=== PATIENT | male | born 1975 | race Caucasian/White ===

== ENCOUNTER 2024-12-23 13:58 | Emergency (ER) | payer BC, SELFPAY ==
--- NOTE | ~2024-12-23 | XR_ITS ---
EXAMINATION: XR chest 2V DATE: 12/23/2024 14:33 INDICATION: Syncope with unresponsive episodes TECHNIQUE: frontal and lateral views of the chest were obtained. COMPARISON: None FINDINGS: The lungs are clear with no focal airspace opacities, pulmonary edema, pleural effusion or pneumothor ax. The cardiomediastinal silhouette is normal. Visualized bones and soft tissues are unremarkable. IMPRESSION: 1. No acute cardiopulmonary disease. Reviewed, dictated and finalized at location B. [employer]
[2024-12-23 14:00] VITALS: BP 169/94; PULSE 72; RESP 22; O2SAT 100
--- NOTE | 2024-12-23 14:05 | ECG_ITS ---
Test Date: 2024-12-23 14:09:34 Measurements Intervals [place] Rate: 68 P: 0 KS: 138 QRS: 7 QRSD: 89 T: 11 QT: 367 QTc: 391 Interpretive Statements SINUS RHYTHM BASELINE ARTIFACT- I, ,II, III, AVR, AVL, AVF, V1-V6 NORMAL ECG No previous ECG available for comparison Electronically Signed On 12-23-2024 14:14:42 [employer]ORSE DOCTOR by Abhijeet Kern D.O.
[2024-12-23 14:12] VITALS: BP 169/94; PULSE 81; RESP 19; TEMP 37.2; O2SAT 96
[2024-12-23 14:14] LABS: Glucose Point of Care 96 mg/dl (65-105)
[2024-12-23 14:28] LABS: Basophils Percent Auto 0.4 % (0.2-1.2); Eosinophils Absolute Auto 0.1 K/mm3 (0-0.3); Eosinophils Percent Auto 1.2 % (0-4.4); Hematocrit 42.7 % (42.0-52.0); Hemoglobin 14.8 g/dL (14.0-18.0); Immature Granulocyte Absolute 0.01 K/mm3 (0.00-0.031); Immature Granulocyte Percent A 0.2 % (0-0.5); Lymphocytes Absolute Auto 1.06 K/mm3 (0.9-3.2); Mean Corpuscular HGB Conc 34.7 g/dl (32-36); Mean Corpuscular Hemoglobin 28.4 pg (26-34); Mean Corpuscular Volume 81.8 fl (80-100); Mean Platelet Volume 10.2 fl (7.4-10.4); Monocytes Absolute Auto 0.6 K/mm3 (0.1-0.6); Monocytes Percent Auto 12.7 % (2.6-8.5); Neutrophils Absolute Auto 3.3 K/mm3 (1.3-6.7); Neutrophils Percent Auto 64.5 % (45.5-73.1); Platelet Count Result 176 k/mm3 (150-375); Red Blood Count 5.22 M/mm3 (4.6-6.20); Red Cell Distribution Width 13.9 % (11.5-14.5)
[2024-12-23 14:38] LABS: Alanine Aminotransferase 29 U/L (6-50); Albumin Level 4.3 g/dL (3.5-5.1); Alkaline Phosphatase 86 U/L (38-126); Anion Gap 14 mmol/L (4-12); Aspartate Amino Transferase 23 U/L (17-59); Bilirubin,Total 0.9 mg/dL (0.2-1.3); Blood Urea Nitrogen 15 mg/dL (9-20); Calcium 9.2 mg/dL (8.4-10.2); Carbon Dioxide 19 mmol/L (22-30); Chloride 104 mmol/L (98-107); Estimated CRCL calculation 109 ml/min; Estimated Glomerular Filt Rate > 60; Glucose 91 mg/dL (65-110); Potassium 3.4 mmol/L (3.4-5.0); Sodium 137 mmol/L (137-145)
[2024-12-23] MEDS: SODIUM CHLORIDE 0.9% IV 1,000 ML 999 ML IV CONT (15:06)
[2024-12-23] MEDS: ONDANSETRON INJ 4 MG/2 ML VIAL IV PUSH (15:06)
[2024-12-23] MEDS: MECLIZINE HCL 25 MG TABLET PO (15:06)
[2024-12-23 15:32] VITALS: BP 130/82; PULSE 74; RESP 17
[2024-12-23 16:37] VITALS: BP 141/85; PULSE 73; RESP 12; O2SAT 96
--- OUTSIDE RECORDS SUMMARY | 2024-12-23 17:05 | XMS_ITS | Referral Summary ---
[facility] [place] [address] Care Team Providers Care Patient Financial Services Specialist Name Role Phone Burke Trent MD Primary Care Provider [phone] Encounters Date Type Department Care Team Description 10/13/2024 8:19 PM FLORAL ARRANGER - 10/13/2024 11:36 PM [facility] Emergency [address] [address] Varicose veins of right lower extremity, unspecified whether complicated (Primary Dx) Discharge Disposition: Discharge to home or self care from Last 3 Months Allergies Active Allergy Reactions Criticality Noted Date Comments Lisinopril Angioedema High 08/16/2023 Lip swelling voice changes Medications carvediloL (COREG) 3.125 mg tablet Take 1 tablet (3.125 mg total) by mouth 2 (two) times a day with meals 60 tablet 3 Active famotidine (PEPCID) 20 mg tablet Take 1 tablet (20 mg total) by mouth 2 (two) times a day for 10 days 20 tablet 3 Active Additional Information Patient not taking.Reported on 04/20/2024 diphenhydrAMINE (BENADRYL) 12.5 mg chewable tablet Take 1 tablet (12.5 mg total) by mouth every 6 (six) hours as needed for allergies 12 tablet 3 Active simvastatin (ZOCOR) 20 mg tablet Take 1 tablet (20 mg total) by mouth nightly Active ketorolac (TORADOL) 10 mg tablet Take 1 tablet (10 mg total) by mouth every 6 (six) hours as needed for pain 20 tablet 4 Active Active Problems Problem Noted Date Diagnosed Date Angioedema, initial encounter 08/15/2023 Venous insufficiency Assessment & Plan (05/26/2024 9:45 AM CDT): Bilateral lower extremity edema being controlled with compression. Continues to have bulky varicosities noted to both lower extremities along with evidence of venous insufficiency with hyperpigmentation to both calves. Previous ulcerations have healed. No current ulcerations noted. Based off recent venous duplex patient is a candidate for possible accessory venous ligation along with stab phlebectomies and bank vault attendant ligations. Discussed procedures with the patient along with all of its potential risks. Answered all questions at this time. He is agreeable wishes to proceed. Assessment & Plan (04/20/2024 4:08 PM CDT): Evidence of peripheral venous insufficiency as evidenced by hyperpigmentation, multiple bulky varicosities and reticular veins. 2+ pitting edema noted to the left lower extremity 1+ pitting to the right lower extremity. No open ulcerations currently. Plan: Follow-up in the next month with a venous reflux. Prescription for compression stockings given. Hypercholesteremia Hypertension Social History Tobacco Use Types Packs/Day Years Used Date Smoking Tobacco: Never Tobacco Cessation:Counseling Given: Not Answered AUDIT-C Answer Date Recorded Q1: How often do you have a drink containing alcohol? Never 08/16/2023 Q2: How many drinks containi ng alcohol do you have on a typical day when you are drinking? Patient does not drink Q3: How often do you have si x or more drinks on one occasion? Never 08/16/2023 Personal Safety Answer Date Recorded Have you ever been in or are you currently in a harmful physical or emotional relationship or is someone making you feel afraid or unsafe? Denies 10/13/2024 Sex and Gender Information Value Date Recorded Sex Assigned at Not on file Legal Sex Male 9:36 PM FL[facility]AL AR[facility]ANGER Gender Identity Not on file Sexual Orientation Not on file Last Filed Vital Signs Vital Sign Reading Time Taken Comments Blood Pressure 145/84 10/13/2024 11:05 PM FLORAL AR[facility]ANGER Pulse 75 10/13/2024 11:35 PM FLORAL ARRANGER Temperature 36.7 C (98 F) 10/13/2024 8:19 PM FLORAL ARRANGER Respiratory Rate 18 10/13/2024 11:35 PM FLORAL ARRANGER Oxygen Saturation 100% 10/13/2024 11:35 PM FLORAL ARRANGER Inhaled Oxygen Concentration - - Weight 117.9 kg (260 lb) 10/13/2024 8:19 PM FLORAL ARRANGER Height 190.5 cm (6' 3 ) 10/13/2024 8:19 PM FLORAL ARRANGER Body Mass Index 32.5 10/13/2024 8:19 PM FLORAL ARRANGER Plan of Treatment Not on file Procedures Procedure Name Priority Date/Time Associated Diagnosis Comments XR ANKLE RIGHT 3 OR MORE VIEWS ED 10/13/2024 10:17 PM FLORAL ARRANGER from Last 3 Months Results * XR Ankle Right 3 or More Views (10/13/2024 10:17 PM FLORAL ARRANGER) Anatomical Region Laterality Modality Lower Extremities, Ankle Right Compute d Radiography 10/13/2024 10:2 3 PM FLORAL ARRANGER Narrative 10/13/2024 10:24 PM FLORAL ARRANGER EXAM DESCRIPTION: XR ANKLE RIGHT 3 OR MORE VIEWS REASON FOR STUDY: cyst/ Pt here with c/o having a possible cyst to R anterior ankle, pt states he gets a throbbing pain with ambulation, denies fever and chills, 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 PMS intact. TECHNIQUE: 3 radiographic view(s) of the right ankle . COMPARISON: None FINDINGS: There is no definite evidence of acute displaced fracture or dislocation involving the right ankle. There is no definite evidence of aggressive appearing osseous lesion. The ankle mortise alignment is grossly well maintained. There is focal soft tissue swelling noted anteriorly. IMPRESSION: No definite evidence of acute displaced fracture or dislocation involving the right ankle.. Focal soft tissue swelling involving the anterior aspect of the right ankle, which is indeterminate in etiology. The necessity of further imaging can be determined clinically. THIS IS AN ELECTRONICALLY VERIFIED FINAL REPORT 10/13/2024 10:24 PM - Electronically signed by Ken Quintero D.O. 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 PMS intact. TECHNIQUE: 3 radiographic view(s) of the right ankle . COMPARISON: None FINDINGS: There is no definite evidence of acute displaced fracture or dislocation involving the right ankle. There is no definite evidence of aggressive appearing osseous lesion. The ankle mortise alignment isgrossly well maintained. There is focal soft tissue swelling noted anteriorly. IMPRESSION: No definite evidence of acute displaced fracture or dislocation involvingthe right ankle.. Focal soft tissue swelling involving the anterior aspect of the rightankle, which is indeterminate in etiology. The necessity of further imaging canbe determined clinically. THIS IS AN ELECTRONICALLY VERIFIED FINAL REPORT 10/13/2024 10:24 PM - Electronically signed by Ken Quintero D.O. PS T: Report ID: [id number] Reading Location: [id number] [facility] XR PROCEDURES Final Resu lt from Last [address] [place] [address] [place] [address] [facility] CHOICE PLUS [address] OOS Care Teams Patient Financial Services Specialist Relationship Specialty Start Date End Date Burke Trent MD [address] [facility] [address] [place] [address] PCP - General Internal Medicine 07/08/22
--- OUTSIDE RECORDS SUMMARY | 2024-12-23 17:05 | XMS_ITS | Patient Health Summary ---
Author Organization [facility] Address [address] [place] [address] Care Team Providers Care New Car Inspector Name Role Phone Burke Trent MD Primary Care Provider Felipe Robbins MD Unavailable [phone] Note from [facility],non-owned Affiliates and Associated Physician Practices is amultiple site organization consisting of ambulatory clinics and hospital sitesin [place], [place], [place] and [place]. This disclosure is being madepursuant to the Care Everywhere program and may not contain all information available regarding this patient. Last updated 18.[facility] Allergies * Lisinopril(Angioedema) -High Criticality Medications * Be aware that medications may not be up to date on this document. Alwaysverify current medications with the patient. * carvedilol (Coreg) 3.125 MG tablet(Started 11/05/2024) Take 1 (one) tablet by mouth once daily Reasons: High Blood Pressure 1 refill by 11/05/2025 * simvastatin (Zocor) 20 MG tablet(Started 11/05/2024) Take 1 (one) tablet by mouth at bedtime 1 refill by 11/05/2025 Active Problems Problem Noted Date Diagnosed Date Venous reflux 01/24/2023 Hypertension 08/11/2012 Hyperlipidemia Resolved Problems Problem Noted Date Diagnosed Date Resolved Date Syncope 07/19/2023 02/05/2024 Immunizations * INFLUENZA VACCINE(Given 07/28/2014, 08/11/2013) * INFLUENZA VACCINE, QUADR. (AFLURIA, FLUZONE QUADRIVALENT; 6MO+) (IIV4)(Given 09/03/2017) * INFLUENZA VACCINE, QUADR. (FLUZONE; FLULAVAL; FLUARIX; AFLURIA QUADRIVALENT; 6MO+), 0.5 ML (IIV4)(Given 07/19/2023, 07/14/2021, 01/09/2021) * INFLUENZA VACCINE, TRIV. (FLUZONE; FLULAVAL; FLUARIX; AFLURIA TRIVALENT; 6MO+), 0.5 ML (IIV3)(Given 11/05/2024) * TD, HISTORIC VACCINE(Given 08/09/2011) * TDAP (7yrs+)(Given 01/12/2022) * TETANUS(Given 08/09/2011) Social History Tobacco Use Types Packs/Day Years Used Date Smoking Tobacco: Never Passive Smoke Exposure: Never Smokeless Tobacco: Never Alcohol Use Standard Drinks/Week Comments Yes 0 (1 standard drink = 0.6 oz pur e alcohol) social AUDIT-C Answer Date Recorded Q1: How often do you have a drink containing alc ohol? Patient declined 01/07/2023 Q2: How many drinks containi ng alcohol do you have on a typical day when you are drinking? Patient declined 01/07/2023 Q3: How often do you have si x or more drinks on one occasion? Patient declined 01/07/2023 PHQ-2 Answer Date Recorded Patient Health Questionnaire-2 Score 0 11/05/2024 Sex and Gender Information Value Date Recorded Sex Assigned at Not on file Gender Identity Not on file Sexual Orientation Not on file Last Filed Vital Signs Vital Sign Reading Time Taken Comments Blood Pressure 130/88 11/05/2024 8:49 AM BAND AID MACHINE OPERATOR Pulse 72 11/05/2024 8:49 AM BAND AID MACHINE OPERATOR Temperature 36.2 C (97.2 F) 11/05/2024 8:49 AM BAND AID MACHINE OPERATOR Respiratory Rate 14 01/07/2023 5:50 PM CDT Oxygen Saturation 98% 11/05/2024 8:49 AM BAND AID MACHINE OPERATOR Inhaled Oxygen Concentration - - Weight 117.8 kg (259 lb 9.6 oz) 11/05/2024 8:49 AM BAND AID MACHINE OPERATOR Height 188 cm (6' 2 ) 11/05/2024 8:49 AM BAND AID MACHINE OPERATOR Body Mass Index 33.33 11/05/2024 8:49 AM BAND AID MACHINE OPERATOR Procedures * TSH REFLEX FREE T4(Performed 11/05/2024) Performed for Wellness examination, Hyperlipidemia, unspecified hyperlipidemia type, Primary hypertension * PROSTATE SPECIFIC ANTIGEN SCREEN(Performed 11/05/2024) Performed for Prostate cancer screening * HEMOGLOBIN A1C(Performed 11/05/2024) Performed for Diabetes mellitus screening * LIPID PROFILE(Performed 11/05/2024) Performed for Hyperlipidemia, unspecified hyperlipidemia type * COMPREHENSIVE METABOLIC PANEL(Performed 11/05/2024) Performed for Wellness examination, Need for prophylactic vaccination and inoculation against influenza, Hyperlipidemia, unspecified hyperlipidemia type, Decreased GFR * PROSTATE SPECIFIC ANTIGEN SCREEN(Performed 03/19/2024) Performed for Prostate cancer screening * LIPID PROFILE(Performed 03/19/2024) Performed for Hyperlipidemia, unspecified hyperlipidemia type * VAS RIGHT VENOUS DUPLEX LE(Performed 01/23/2023) Performed for Leg swelling * LIPID PROFILE(Performed 01/23/2023) Performed for Hyperlipidemia, unspecified hyperlipidemia type * COMPREHENSIVE METABOLIC PANEL(Performed 01/23/2023) Performed for Primary hypertension, Hyperlipidemia, unspecified hyperlipidemia type, Leg swelling * CARDIAC EKG ORDER(Performed 01/09/2023) * TROPONIN I(Performed 01/07/2023) * XR CHEST 2VW(Performed 01/07/2023) Performed for Near syncope * URINE MICROSCOPIC ONLY REFLEX TO CULTURE(Performed 01/07/2023) * URINALYSIS REFLEX MICROSCOPIC REFLEX CULTURE(Performed 01/07/2023) * B-TYPE NATRIURETIC PEPTIDE(Performed 01/07/2023) * MAGNESIUM BLOOD(Performed 01/07/2023) * TROPONIN I(Performed 01/07/2023) * COMPREHENSIVE METABOLIC PANEL(Performed 01/07/2023) * CBC W AUTO DIFFERENTIAL(Performed 01/07/2023) * EKG 12-LEAD(Performed 01/07/2023) Performed for Near syncope * CARDIAC EKG ORDER(Performed 10/06/2022) * CT ANGIO BRAIN AND NECK(Performed 10/02/2022) Performed for Syncope and collapse * TROPONIN I(Performed 10/02/2022) * CT HEAD WO CONTRAST(Performed 10/02/2022) Performed for Syncope and collapse * D-DIMER(Performed 10/02/2022) * XR CHEST 1VW PORTABLE(Performed 10/02/2022) Performed for Syncope and collapse * TSH REFLEX FREE T4(Performed 10/02/2022) * MAGNESIUM BLOOD(Performed 10/02/2022) * TROPONIN I(Performed 10/02/2022) * CBC W AUTO DIFFERENTIAL(Performed 10/02/2022) * COMPREHENSIVE METABOLIC PANEL(Performed 10/02/2022) * SARS-COV-2 (COVID-19)+INFLU A+B PCR RAPID(Performed 10/02/2022) * EKG 12-LEAD(Performed 10/02/2022) Performed for Syncope and collapse * IMAGING/RADIOLOGY/XRAY RESULTS ORDER(Performed 05/01/2022) * BASIC METABOLIC PANEL (CALCIUM TOTAL)(Performed 01/12/2022) Performed for Primary hypertension * LIPID PROFILE(Performed 10/26/2021) Performed for Pure hypercholesterolemia * COMPREHENSIVE METABOLIC PANEL(Performed 10/26/2021) Performed for Primary hypertension, Pure hypercholesterolemia * LIPID PROFILE(Performed 01/14/2021) Performed for Hyperlipidemia, unspecified hyperlipidemia type * COMPREHENSIVE METABOLIC PANEL(Performed 01/14/2021) Performed for Essential hypertension, Hyperlipidemia, unspecified hyperlipidemia type * HIV-1 RNA QUALITATIVE RFLXD(Performed 07/14/2020) Performed for Encounter for screening for HIV * INTERPRETATION REFLEXED(Performed 07/14/2020) Performed for Need for hepatitis C screening test * HIV-1 HIV-2 ANTIBODY W REFLX(Performed 07/14/2020) Performed for Encounter for screening for HIV * HEPATITIS C ANTIBODY W RFLX PCR(Performed 07/14/2020) Performed for Need for hepatitis C screening test * TSH REFLEX FREE T4(Performed 07/14/2020) Performed for Malaise and fatigue * CBC W AUTO DIFFERENTIAL(Performed 07/14/2020) Performed for Malaise and fatigue * LIPID PROFILE(Performed 07/14/2020) Performed for Hyperlipidemia, unspecified hyperlipidemia type * COMPREHENSIVE METABOLIC PANEL(Performed 07/14/2020) Performed for Essential hypertension, Hyperlipidemia, unspecified hyperlipidemia type * LIPID PROFILE(Performed 01/01/2020) Performed for Essential hypertension, Hyperlipidemia, unspecified hyperlipidemia type * COMPREHENSIVE METABOLIC PANEL(Performed 01/01/2020) Performed for Essential hypertension * LIPID PROFILE(Performed 12/09/2018) Performed for Hyperlipidemia, unspecified hyperlipidemia type * BASIC METABOLIC PANEL (CALCIUM TOTAL)(Performed 12/09/2018) Performed for Essential hypertension, Hyperlipidemia, unspecified hyperlipidemia type * LIPID PROFILE(Performed 06/06/2018) Performed for Hyperlipidemia, unspecified hyperlipidemia type * COMPREHENSIVE METABOLIC PANEL(Performed 06/06/2018) Performed for Essential hypertension, Hyperlipidemia, unspecified hyperlipidemia type * LIPID PROFILE(Performed 05/17/2017) Performed for Hyperlipidemia, unspecified hyperlipidemia type * COMPREHENSIVE METABOLIC PANEL(Performed 05/17/2017) Performed for Hyperlipidemia, unspecified hyperlipidemia type * CARDIAC STRESS ECHO ORDER(Performed 03/18/2017) * LIPID PROFILE(Performed 11/16/2016) Performed for Hyperlipidemia, unspecified hyperlipidemia type * COMPREHENSIVE METABOLIC PANEL(Performed 11/16/2016) Performed for Essential hypertension, Hyperlipidemia, unspecified hyperlipidemia type * LIPID PROFILE(Performed 06/09/2016) Performed for Hyperlipidemia, unspecified hyperlipidemia type * LIPID PROFILE(Performed 11/10/2015) Performed for Hyperlipidemia, unspecified hyperlipidemia * COMPREHENSIVE METABOLIC PANEL(Performed 11/10/2015) Performed for Essential hypertension, Hyperlipidemia, unspecified hyperlipidemia * BASIC METABOLIC PANEL (CALCIUM TOTAL)(Performed 05/17/2014) Performed for Hypertension * BASIC METABOLIC PANEL (CALCIUM TOTAL)(Performed 11/16/2013) Performed for Hypertension * COMPREHENSIVE METABOLIC PANEL(Performed 05/19/2013) Performed for Hypertension * LIPID PROFILE(Performed 05/19/2013) Performed for Hypertension * BASIC METABOLIC PANEL (CALCIUM TOTAL)(Performed 11/10/2012) Performed for Hypertension Results * TSH REFLEX FREE T4 (11/05/2024 10:20 AM BAND AID MACHINE OPERATOR) Only the most recent of3 resultswithin the time period is included. Pathologist [facility] TSH 0.682 0.350 - 4.940 uIU/mL [facility] ACCOUNT BILL Blood BLOOD SPECIMEN / Unknown 11/05/2024 10:20 AM BAND AID MACHINE OPERATOR 11/05/2024 Narrative [facility] ACCOUNT BILL - 11/05/2024 5:07 PM BAND AID MACHINE OPERATOR Performed at: [address] [place] [address] [address] , [place], [place] [id number] Platform Builder: Donn Rodriguez MD, Phone: [phone] Cait Rodriguez APRN-ELL TUTOR LAB - CHEMISTRY O RDERABLES [facility] ACCOUNT BILL [address] [place] [address] * HEMOGLOBIN A1C (11/05/2024 10:20 AM BAND AID MACHINE OPERATOR) Hemoglobin A1c 5.3 <5.7 % [facility] ACCOUNT BILL Comment: AVERAGE GLUCOSE MG/DL BLOOD 105 mg/dL HbA1c Interpretation: Normal: < 5.7% Pre-diabetes: 5.7-6.4% Diabetes: Equal to or greater than 6.5% Test results diagnostic of diabetes should be repeated for c onfirmation. Treatment target values recommended by ADA and other clinica l organizations should be used to evaluate metabolic control in patients. This test should not replace glucose testing for patients wi th Type 1 diabetes, pediatric patients, or women. Falsely low HbA1c results may be observed in patients with c linical conditions that shorten erythrocyte life span or dec rease mean erythrocyte age such as the presence of unstable hemoglobin variants, elevated hemoglobin F level or other ca uses of hemolytic anemia. HbA1c may not accurately reflect glycemic control when clinical conditions that affect erythr ocyte survival are present. Severe Iron deficiency anemia m ay yield falsely high results. Hemoglobin A1c assay should not be used to diagnose or monitor diabetes in patients with malignancy, recent blood transfusion, chronic kidney or keyla er disease. This method may yield falsely low results when hemoglobin (HbF) exceeds 5% in the specimen. The MyClean Alinity assay for the measurement of HbA1c is a [facility] Glycohemoglobin Standardization Program (NGSP) certi fied method. Blood BLOOD SPECIMEN / Unknown 11/05/2024 10:20 AM BAND AID MACHINE OPERATOR 11/05/2024 Narrative [facility] ACCOUNT BILL - 11/05/2024 5:07 PM BAND AID MACHINE OPERATOR Performed at: [address] [place] [address] , [place], [place] [id number] Platform Builder: Donn Rodriguez MD, Phone: [phone] Cait Rodriguez HOME FURNISH[employer] SALES REPRESENTATIVE-ELL TUTOR LAB - CHEMISTRY O RDERABLES [facility] ACCOUNT BILL [address] [place] [address] * (ABNORMAL) COMPREHENSIVE METABOLIC PANEL (11/05/2024 10:20 AM BAND AID MACHINE OPERATOR) Only the most recent of13 resultswithin the time period is included. Glucose 99 70 - 99 mg/dL [facility] ACCOUNT BILL BUN 17 5.3 - 18.7 mg/dL [facility] ACCOUNT BILL Creatinine 1.26(H) 0.72 - 1.25 mg/dL [facility] ACCOUNT BILL eGFR by CKD-EPI 71(L) >=90 mL/min/1.7 3 m2 [facility] ACCOUNT BILL Sodium 137 136 - 145 mmol/L [facility] ACCOUNT BILL Potassium 4.7 3.5 - 5.1 mmol/L [facility] ACCOUNT BILL Chloride 107 98 - 107 mmol/L [facility] ACCOUNT BILL CO2 24 22 - 29 mmol/L [facility] ACCOUNT BILL Calcium 9.5 8.4 - 10.4 mg/dL [facility] ACCOUNT BILL Protein Total 8.0 6.4 - 8.3 gm/dL [facility] ACCOUNT BILL Albumin 4.3 3.4 - 5.0 gm/dL [facility] ACCOUNT BILL Bilirubin Total 0.8 0.2 - 1.2 mg/dL [facility] ACCOUNT BILL Alkaline Phosphatase 90 40 - 150 U/L [facility] ACCOUNT BILL AST 20 5 - 34 U/L [facility] ACCOUNT BILL ALT 23 0 - 55 U/L [facility] ACCOUNT BILL Blood BLOOD SPECIMEN / Unknown 11/05/2024 10:20 AM BAND AID MACHINE OPERATOR 11/05/2024 Narrative [facility] ACCOUNT BILL - 11/05/2024 5:07 PM BAND AID MACHINE OPERATOR Performed at: [address] [place] [address] , [place], [place] [id number] Platform Builder: Donn Rodriguez MD, Phone: [phone] Cait Rodriguez HOME FURNISH[employer] SALES REPRESENTATIVE-ELL TUTOR LAB - CHEMISTRY O RDERABLES [facility] ACCOUNT BILL [address] [place] [address] * PROSTATE SPECIFIC ANTIGEN SCREEN (11/05/2024 10:20 AM BAND AID MACHINE OPERATOR) Only the most recent of2 resultswithin the time period is included. PSA 0.98 <=4.00 ng/mL [facility] ACCOUNT BILL Comment: PSA values will vary depending on testing procedure used. R esults are not comparable across different methods. PSA jeremy ues obtained by [facility] (not [facility]) use the Paez Alini ty immunoassay method. Blood BLOOD SPECIMEN / Unknown 11/05/2024 10:20 AM BAND AID MACHINE OPERATOR 11/05/2024 Narrative [facility] ACCOUNT BILL - 11/05/2024 5:07 PM BAND AID MACHINE OPERATOR Performed at: [address] [place], [place] [address] [place], [place] [id number] Platform Builder: Donn Rodriguez MD, Phone: [phone] Cait BELLEELL TUTOR LAB - CHEMISTRY O RDERADIAMANTE Performing Organization Address City/[facility]/ZIP Co de Phone Number [facility] ACCOUNT BILL [address] [place] [address] * (ABNORMAL) LIPID PROFILE (11/05/2024 10:20 AM BAND AID MACHINE OPERATOR) Only the most recent of14 resultswithin the time period is included. Cholesterol 221(H) <200 mg/dL [facility] ACCOUNT BILL Triglycerides 61 <150 mg/dL [facility] ACCOUNT BILL HDL Cholesterol 41 >40 mg/dL [facility] ACCOUNT BILL VLDL Calculated 12 <=30 mg/dL [facility] ACCOUNT BILL LDL Calculated 168(H) <130 mg/dL [facility] ACCOUNT BILL Blood BLOOD SPECIMEN / Unknown 11/05/2024 10:20 AM BAND AID MACHINE OPERATOR 11/05/2024 Narrative [facility] ACCOUNT BILL - 11/05/2024 5:07 PM BAND AID MACHINE OPERATOR Performed at: [address] [place] [address] [address] [place], [place] [id number] Platform Builder: Donn Rodriguez MD, Phone: [phone] Cait Rodriguez APRN-ELL TUTOR LAB - CHEMISTRY O RDDUY Performing Organization Address [facility] Co de Phone Number [facility] ACCOUNT BILL [address] [place] [address] * VAS RIGHT VENOUS DUPLEX LE (01/23/2023 3:38 PM CDT) Anatomical Region Laterality Modality Lower Extremity Intravascular Ul trasound 01/23/2023 3:23 PM CDT Narrative Procedure Note Burke Mckoy Sr., MD - 01/23/2023 [facility] [id number] Lower Extremity Venous Ultrasound Report Pat.Name: VANESSA ZUNIGA Pat.ID: [id number] .Date: 01/23/2023 Exam Time: 3:23:00 PM Study Type:LE Venous Age: 8 1975,47Y Sex: MALE Sonogrphr: Merlyn Mortensen RVT Pat. Stat.:Outpatient CPT - 4: [id number] Reason for Study: Swelling -Leg, right Procedures: Lower Extremity Venous - Right [facility] Visit ID: [id number] ++++++++++++++++++++++++++++++++++++ SUMMARY: ++++++++++++++++++++++++++++++++++++ Reflux is seen in the right common femoral vein, femoral vein, popliteal vein, posterior tibial veins, peroneal veins, great saphenous vein_. No evidence of deep or superficial venous thrombosis or insufficiency of the right lower extremity. ++++++++++++++++++++++++++++++++++++ FINDINGS: ++++++++++++++++++++++++++++++++++++ Procedure: Venous duplex imaging of the right lower extremity was performed using color flow and spectral Doppler analysis. The contralateral common femoral vein was also examined. Study Quality: This study is of adequate technical quality. Rt Leg: All vessels seen appear patent and compressible. There was spontaneous and phasic flow seen in all the major veins of the right lower extremity. Appropriate augmentation with distal compression. Reflux noted in the common femoral vein, femoral, popliteal, calf veins and entire great saphenous vein. . The left common femoral vein demonstrated phasic and spontaneous flow. Signed 01/23/2023 06:43 PM Burke Mckoy MD, RPVI Burke Trent MD VASCULAR LAB ORDERAB LES * CARDIAC EKG ORDER (01/09/2023 1:09 AM CDT) Only the most recent of2 resultswithin the time period is included. Narrative 01/09/2023 1:09 AM CDT Ordered by an unspecified provider. Scanned Document CARDIAC SERVICES ORD ERABLES * TROPONIN I (01/07/2023 5:54 PM CDT) Only the most recent of4 resultswithin the time period is included. Troponin I <0.010 <0.038 ng/mL 01/07/2023 6:38 PM CDT [facility] Blood BLOOD SPECIMEN / Unknown Venipuncture / Unknown 01/07/2023 5:54 PM CDT 01/07/2023 6:05 PM CDT Dipika Hazel PA-C LAB - CHEMISTRY ORDERABLES [facility] [address] [place] [address] * XR CHEST 2VW (01/07/2023 11:24 AM CDT) Anatomical Region Laterality Modality Chest Radiographic Tahmina ging 01/07/2023 11:2 9 AM CDT Impressions 01/07/2023 11:29 AM CDT IMPRESSION: No acute cardiopulmonary process is identified. > Interpreting Provider: Rock Grossman DO on 01/07/2023 11:29 AM Narrative 01/07/2023 11:29 AM CDT Chest 2 view HISTORY: Near syncope PROCEDURE: Frontal and lateral projections of chest are compared with October 02, 2022. FINDINGS: Lungs are clear without consolidation, effusion or pneumothorax. Cardiac chambers appear normal. The osseous structures are intact. Procedure Note Rock Grossman DO - 01/07/2023 Chest 2 view HISTORY: Near syncope PROCEDURE: Frontal and lateral projections of chest are compared with October 02, 2022. FINDINGS: Lungs are clear without consolidation, effusion orpneumothorax. Cardiac chambers appear normal. The osseous structures are intact. IMPRESSION: No acute cardiopulmonary process is identified. > Interpreting Provider: Rock Grossman DO on 01/07/2023 11:29 AM Dipika Javier Yasemin [facility] NG ORDERABLES * (ABNORMAL) URINE MICROSCOPIC ONLY REFLEX TO CULTURE (01/07/2023 10:55 AM CDT) Reflex Status Culture not indicated 01/07/2023 11:18 AM CDT [facility] RBC UA 0-2 0 - 5 # /hpf 01/07/2023 11:18 AM CDT [facility] WBC UA 0-5 0 - 5 # /hpf 01/07/2023 11:18 AM CDT [facility] Bacteria UA 1+(A) None Seen 01/07/2023 11:18 AM CDT [facility] Squamous Epithelial Cells 0-2 0 - 5 /hpf 01/07/2023 11:18 AM CDT [facility] Transitional Epithelial Cell UA 0-2(A) None Seen /HPF 01/07/2023 11:18 AM CDT [facility] Mucus UA 4+ /LPF 01/07/2023 11:18 AM CDT [facility] Hyaline Casts >20(A) 0 - 2 /LPF 01/07/2023 11:18 AM CDT [facility] Granular Casts 3-5(A) None Seen /LPF 01/07/2023 11:18 AM CDT [facility] Urine URINE SPECIMEN OBTAINED BY CLEAN CATCH PROCEDURE / Unknown Collection / Unknown 01/07/2023 10:55 AM CDT 01/07/2023 10:59 AM CDT Narrative [facility] - 01/07/2023 11:18 AM CDT Dipika Concepcion Yasemin [facility] LAB - URINALYSIS ORDERABLES [facility] [address] [place] [address] * (ABNORMAL) URINALYSIS REFLEX MICROSCOPIC REFLEX CULTURE (01/07/2023 10:55 AM CDT) Color UA Cielo(A) Straw, Yellow 01/07/2023 11:06 AM CDT [facility] Clarity UA Slt Cloudy(A) Clear 01/07/2023 11:06 AM CDT [facility] Glucose UA Negative Negative 01/07/2023 11:06 AM CDT [facility] Bilirubin UA Negative Negative 01/07/2023 11:06 AM CDT [facility] Ketone UA Trace(A) Negative 01/07/2023 11:06 AM CDT [facility] Specific [place] UA 1.028 1.005 - 1.030 01/07/2023 11:06 AM CDT [facility] Blood UA Negative Negative 01/07/2023 11:06 AM CDT [facility] pH UA 5.0 5.0 - 8.0 pH 01/07/2023 11:06 AM CDT [facility] Protein UA 1+(A) Negative 01/07/2023 11:06 AM CDT [facility] Urobilinogen UA Negative Negative mg/dL 01/07/2023 11:06 AM CDT [facility] Nitrite UA Negative Negative 01/07/2023 11:06 AM CDT [facility] Leukocyte UA Negative Negative 01/07/2023 11:06 AM CDT [facility] Urine Microscopy Urine microscopy to follow 01/07/2023 11:06 AM CDT [facility] Reflex Status Culture not indicated 01/07/2023 11:06 AM CDT [facility] Urine URINE SPECIMEN OBTAINED BY CLEAN CATCH PROCEDURE / Unknown Collection / Unknown 01/07/2023 10:55 AM CDT 01/07/2023 10:59 AM CDT Narrative [facility] - 01/07/2023 11:06 AM CDT Dipika aHzel PA-C LAB - URINALYSIS ORDERABLES [facility] [address] [place] [address] * (ABNORMAL) CBC W AUTO DIFFERENTIAL (01/07/2023 10:50 AM CDT) Only the most recent of3 resultswithin the time period is included. WBC 12.3(H) 4.4 - 10.7 x10E9/L 01/07/2023 11:04 AM CDT [facility] WBC Corrected 01/07/2023 11:04 AM CDT [facility] RBC 5.51(H) 3.80 - 5.40 x10E12/L 01/07/2023 11:04 AM CDT [facility] Hemoglobin 15.3 12.0 - 17.6 gm/dL 01/07/2023 11:04 AM CDT [facility] Hematocrit 44.3 35.2 - 51.7 % 01/07/2023 11:04 AM CDT [facility] MCV 80.4(L) 80.7 - 98.3 fl 01/07/2023 11:04 AM CDT [facility] MCH 27.8 26.7 - 34.0 pg 01/07/2023 11:04 AM CDT [facility] MCHC 34.5 30.8 - 35.9 gm/dL 01/07/2023 11:04 AM CDT [facility] Platelet Count 162 153 - 416 x10E9/L 01/07/2023 11:04 AM CDT [facility] RDW-CV 14.0 12.1 - 14.9 % 01/07/2023 11:04 AM CDT [facility] MPV 10.2 9.4 - 12.9 fl 01/07/2023 11:04 AM CDT [facility] Neutrophils % 86.3(H) 44.0 - 73.0 % 01/07/2023 11:04 AM CDT [facility] Lymphocytes % 4.6(L) 20.0 - 43.0 % 01/07/2023 11:04 AM CDT [facility] Monocytes % 8.7 5.0 - 13.0 % 01/07/2023 11:04 AM CDT [facility] Eosinophils % 0.0 0.0 - 6.0 % 01/07/2023 11:04 AM CDT [facility] Basophils % 0.1 0.0 - 2.0 % 01/07/2023 11:04 AM CDT [facility] Immature Granulocytes 0.3 0 - 1 % 01/07/2023 11:04 AM CDT [facility] Neutrophil Absolute 10.58(H) 2.01 - 7.14 x10E9/L 01/07/2023 11:04 AM CDT [facility] Lymphocytes Absolute 0.56(L) 1.07 - 3.94 x10E9/L 01/07/2023 11:04 AM CDT [facility] Monocytes Absolute 1.07 0.26 - 1.07 x10E9/L 01/07/2023 11:04 AM CDT [facility] Eosinophils Absolute 0.00 0 - 0.47 x10E9/L 01/07/2023 11:04 AM CDT [facility] Basophils Absolute 0.01 0 - 0.08 x10E9/L 01/07/2023 11:04 AM CDT [facility] Immature Granulocytes Absolute 0.04 0.00 - 0.06 x10E9/L 01/07/2023 11:04 AM CDT [facility] nRBC Auto 0 /100 WBC 01/07/2023 11:04 AM CDT [facility] Blood BLOOD SPECIMEN / Unknown Venipuncture / Unknown 01/07/2023 10:50 AM CDT 01/07/2023 10:59 AM CDT Dipika Hazel PA-C LAB - HEMATOLOGY ORDERABLES Performing Organization Address City/[facility]/ZIP Co de Phone Number [facility] [address] [place], [place] [phone] * B-TYPE NATRIURETIC PEPTIDE (01/07/2023 10:50 AM CDT) BNP 49 <=100 pg/mL 01/07/2023 11:24 AM CDT [facility] Blood BLOOD SPECIMEN / Unknown Venipuncture / Unknown 01/07/2023 10:50 AM CDT 01/07/2023 10:59 AM CDT Dipika Hazel PA-C LAB - CHEMISTRY ORDERABLES Performing Organization Address City/[facility] Co de Phone Number [facility] [id number] [place] [address] * MAGNESIUM BLOOD (01/07/2023 10:50 AM CDT) Only the most recent of2 resultswithin the time period is included. Magnesium 1.6 1.6 - 2.6 mg/dL 01/07/2023 11:21 AM CDT [facility] Blood BLOOD SPECIMEN / Unknown Venipuncture / Unknown 01/07/2023 10:50 AM CDT 01/07/2023 10:59 AM CDT Dipika Javier Yasemin ELLISON LAB - CHEMISTRY ORDERABLES [facility] [address] [place] [address] * EKG 12-LEAD (01/07/2023 10:26 AM CDT) Only the most recent of2 resultswithin the time period is included. Ventricular Rate 100 BPM [facility] Atrial Rate 100 BPM [facility] P-R Interval 130 ms [facility] QRS Duration ms 72 ms [facility] Q-T Interval ms 312 ms [facility] QTC Calculation (Bezet) 402 ms [facility] Calculated P Wells 49 degrees [facility] Calculated R Wells 37 degrees [facility] Calculated T Wells 44 degrees [facility] Interpretation EKG Sinus rhythm with Premature atrial complexes with Aberrant conduction Otherwise normal ECG Confirmed by ASHLEE MORA MD ([id number]) on 01/07/2023 11:45:06 AM [facility] 01/07/2023 10:2 6 AM CDT 01/07/2023 11:45 AM CDT Dipika aJvier Yasemin ELLISON ECG ORDERABLES Performing Organization Address [facility] Co de Phone Number [facility] * CT ANGIO BRAIN AND NECK (10/02/2022 7:52 PM BAND AID MACHINE OPERATOR) Anatomical Region Laterality Modality Head Computed Tomogra phy 10/02/2022 7:54 PM BAND AID MACHINE OPERATOR Impressions 10/02/2022 8:02 PM BAND AID MACHINE OPERATOR Impression: No flow significant cervical or intracranial vascular stenosis. > Interpreting Provider: Gui Ramos MD on 10/02/2022 8:02 PM Narrative 10/02/2022 8:02 PM BAND AID MACHINE OPERATOR PROCEDURE: CT ANGIO BRAIN AND NECK, DATE/TIME OF EXAM: 10/02/2022 7:53 PM, LOCATION [facility] INDICATION: R55: Syncope and collapse ADDITIONAL CLINICAL INFORMATION: Ordering Provider Reason For Exam: Technologist Note: Additional: COMPARISON: None. Syncope and collapse CT angiography neck with contrast CT angiography head with contrast CT 3D Reconstruction Clinical Indication: Technique: Axial CT images of the head and neck were obtained following the administration of Isovue-370 80 cc intravenous contrast. Multiplanar reformatted, maximum intensity projection, and 3D volume rendered reconstructions of the arterial vasculature of the neck and brain was performed on an independent workstation. NASCET criteria was used to measure stenosis using the distal internal carotid artery as a reference. Findings: Great vessel artery origins: The lung apices are clear. No great vessel artery origin stenosis.Slight prominence to the main pulmonary artery suggesting increased pulmonary arterial pressure Left carotid system: No vascular stenosis or vessel wall irregularity. Right carotid system: No vessel wall irregularity or vascular stenosis. Cervical vertebral system: The vertebral arteries aresymmetric in size. Intracranial circulation: No basilar stenosis. Patent bilateral posterior communicating arteries The P1 and P2 segments are symmetric. The M1 and M2 segments are symmetric. No unexpected peripheral vascular tapering to the sylvian branches of the middle cerebral arteries. . No abnormal intracranial enhancement.No intracranial aneurysm evident. No major venous sinus thrombosis Procedure Note Gui Ramos MD - 10/02/2022 PROCEDURE: CT ANGIO BRAIN AND NECK, DATE/TIME OF EXAM: 10/02/2022 7:53PM, LOCATION [facility] INDICATION: R55: Syncope and collapse ADDITIONAL CLINICAL INFORMATION: Ordering Provider Reason For Exam: Technologist Note: Additional: COMPARISON: None. Syncope and collapse CT angiography neck with contrast CT angiography head with contrast CT 3D Reconstruction Clinical Indication: Technique: Axial CT images of the head and neck were obtained followingthe administration of Isovue-370 80 cc intravenous contrast. Multiplanar reformatted, maximum intensity projection, and 3D volume rendered reconstructions of the arterial vasculature of the neck and brain was performed on an independent workstation. NASCET criteria was used to measure stenosis using the distal internal carotid artery as areference. Findings: Great vessel artery origins: The lung apices are clear. No great vessel artery origin stenosis.Slight prominence to the main pulmonary artery suggesting increased pulmonary arterial pressure Left carotid system: No vascular stenosis or vessel wall irregularity. Right carotid system: No vessel wall irregularity or vascular stenosis. Cervical vertebral system: The vertebral arteries aresymmetric in size. Intracranial circulation: No basilar stenosis. Patent bilateralposterior communicating arteries The P1 and P2 segments are symmetric. The M1 andM2 segments are symmetric. No unexpected peripheral vascular tapering tothe sylvian branches of the middle cerebral arteries. . No abnormal intracranial enhancement.No intracranial aneurysm evident. No majorvenous sinus thrombosis Impression: No flow significant cervical or intracranial vascular stenosis. > Interpreting Provider: Gui Ramos MD on 10/02/2022 8:02 PM Oliver Cardenas Ased DO CT ORDERABLES * CT HEAD NON CONTRAST - suspected intracranial hemorrhage (10/02/2022 7:37 PM BAND AID MACHINE OPERATOR) Anatomical Region Laterality Modality Head Computed Tomogra phy 10/02/2022 7:39 PM BAND AID MACHINE OPERATOR Impressions 10/02/2022 7:40 PM BAND AID MACHINE OPERATOR IMPRESSION: No hemorrhage or edema. No acute intracranial process evident. > Interpreting Provider: Gui Ramos MD on 10/02/2022 7:40 PM Narrative 10/02/2022 7:40 PM BAND AID MACHINE OPERATOR PROCEDURE: CT HEAD WO CONTRAST, DATE/TIME OF EXAM: 10/02/2022 7:38 PM, LOCATION [facility] INDICATION: R55: Syncope and collapse ADDITIONAL CLINICAL INFORMATION: Ordering Provider Reason For Exam: Technologist Note: Additional: Syncope and collapse dizziness 47-year-old COMPARISON: None. TECHNIQUE: Noncontrast CT brain was performed utilizing standard protocol. CT dose reduction technique was used, including Automated Exposure Control. FINDINGS: No hyperdense MCA basilar or superior sagittal sinus. No loss of the lentiform or thalamic nucleus differentiation. The globes and postseptal soft tissues are normal. The craniocervical junction is normal. Sella turcica region normal. The corpus callosal volume, also normal. No mass, mass displacement, hemorrhage, or edema. The suprasellar cisterns are normal. No sinus fluid levels Procedure Note Gui Ramos MD - 10/02/2022 PROCEDURE: CT HEAD WO CONTRAST, DATE/TIME OF EXAM: 10/02/2022 7:38 PM, LOCATION [facility] INDICATION: R55: Syncope and collapse ADDITIONAL CLINICAL INFORMATION: Ordering Provider Reason For Exam: Technologist Note: Additional: Syncope and collapse dizziness 47-year-old COMPARISON: None. TECHNIQUE: Noncontrast CT brain was performed utilizing standard protocol. CT dose reduction technique was used, including Automated ExposureControl. FINDINGS: No hyperdense MCA basilar or superior sagittal sinus. No loss of the lentiform or thalamic nucleus differentiation. The globes and postseptal soft tissues are normal. The craniocervical junction is normal. Sella turcica region normal. The corpus callosal volume, also normal. No mass, mass displacement, hemorrhage, or edema. The suprasellar cisterns are normal. No sinus fluid levels IMPRESSION: No hemorrhage or edema. No acute intracranial process evident. > Interpreting Provider: Gui Ramos MD on 10/02/2022 7:40 PM Oliver Trotter DO CT ORDERABLES * D-DIMER (10/02/2022 6:29 PM BAND AID MACHINE OPERATOR) D-Dimer 0.43 0.27 - 0.50 ug/mL FEU 10/02/2022 6:52 PM BAND AID MACHINE OPERATOR [facility] Blood BLOOD SPECIMEN / Unknown Venipuncture / Unknown 10/02/2022 6:29 PM BAND AID MACHINE OPERATOR 10/02/2022 6:35 PM BAND AID MACHINE OPERATOR Narrative [facility] - 10/02/2022 6:52 PM BAND AID MACHINE OPERATOR In the absence of clinical symptoms, a value less than or equal to 0.5 mcg/mL FEU significantly decreases the probability of PE/DVT (negative predictive value >95%). 1 mcg/ml FEU = 1 Fibrinogen Equivalent Unit (approximates 0.5 mcg/mL of D- dimer). Oliver Trotter DO LAB - COAGULATION O RDERABLES [facility] [address] [place] [address] * XR CHEST 1VW PORTABLE (10/02/2022 3:39 PM BAND AID MACHINE OPERATOR) Anatomical Region Laterality Modality Chest Radiographic Tahmina ging 10/02/2022 3:44 PM BAND AID MACHINE OPERATOR Impressions 10/02/2022 3:45 PM BAND AID MACHINE OPERATOR Impression: 1. Mild cardiomegaly. 2. Atelectasis or patchy airspace disease at the right lung base. Consider a short interval follow-up. > Interpreting Provider: Tung Amador DO on 10/02/2022 3:45 PM Narrative 10/02/2022 3:45 PM BAND AID MACHINE OPERATOR Portable AP Chest x-ray INDICATION: Syncope and dizziness. COMPARISON: None FINDINGS: There is minor subsegmental atelectasis or patchy airspace disease at the right lung base. The left lung is clear. There is no pleural effusion or pneumothorax. Mild cardiomegaly. No pulmonary vascular congestion. Procedure Note Perry TungDO henrietta - 10/02/2022 Portable AP Chest x-ray INDICATION: Syncope and dizziness. COMPARISON: None FINDINGS: There is minor subsegmental atelectasis or patchy airspace disease atthe right lung base. The left lung is clear. There is no pleural effusion or pneumothorax. Mild cardiomegaly. No pulmonary vascular congestion. Impression: 1. Mild cardiomegaly. 2. Atelectasis or patchy airspace disease at the right lung base.Consider a short interval follow-up. > Interpreting Provider: Tung Amador DO on 10/02/2022 3:45 PM Oliver Trotter DO DIAGNOSTIC IMAGING ORDERABLES * SARS-COV-2 (COVID-19)+INFLU A+B PCR RAPID (10/02/2022 3:26 PM BAND AID MACHINE OPERATOR) COVID-19 PCR Not detected Not detected 10/02/20 4:30 PM BAND AID MACHINE OPERATOR [facility] Influenza A PCR Not detected Not detected 10/02/2022 4:30 PM BAND AID MACHINE OPERATOR [facility] Influenza B PCR Not detected Not detected 10/02/2022 4:30 PM BAND AID MACHINE OPERATOR [facility] Microbiology SPECIMEN FROM NASOPHARYNGEAL STRUCTURE / Unknown Collection / Unknown 10/02/2022 3:26 PM BAND AID MACHINE OPERATOR 10/02/2022 3:47 PM BAND AID MACHINE OPERATOR Narrative [facility] - 10/02/2022 4:30 PM BAND AID MACHINE OPERATOR This nucleic acid amplification assay has been authorized by the Food and Drug administration (FDA) under an Emergency Use Authorization (EUA). This test is only authorized for the duration of time the declaration that circumstances exist justifying the authorization of emergency use of in vitro diagnostic tests for detection of SARS-CoV-2 virus and/or diagnosis of COVID-19 infection under section 564(b)(1) of the Act, 21 U.S.C 360bbb-3 (b)(1), unless the authorization is terminated or revoked sooner. Fact Sheets for this EUA assay are available upon request. Oliver Trotter DO LAB - MICROBIOLOGY ORDERABLES [facility] [address] [place] [id number] * IMAGING RADIOLOGY XRAY RESULTS ORDER (05/01/2022) Anatomical Region Laterality Modality Other 05/01/2022 Narrative 05/01/2022 Ordered by an unspecified provider. Scanned Document IMAGING * (ABNORMAL) BASIC METABOLIC PANEL (BMP) (01/12/2022 8:57 AM CDT) Only the most recent of5 resultswithin the time period is included. Glucose 94 70 - 105 mg/dL [facility] ACCOUNT BILL BUN 19 8.9 - 20.6 mg/dL [facility] ACCOUNT BILL Creatinine 1.11 0.72 - 1.25 mg/dL [facility] ACCOUNT BILL eGFR by CKD-EPI 84(L) >=90 mL/min/1.7 3 m2 [facility] ACCOUNT BILL Comment: eGFR result was calculated using the updated CKD-EPI Creatin ine Equations (2020). Prior to go live 2021 the eGFR was calculated us Sodium 139 136 - 145 mmol/L [facility] ACCOUNT BILL Potassium 4.7 3.5 - 5.1 mmol/L [facility] ACCOUNT BILL Chloride 105 98 - 107 mmol/L [facility] ACCOUNT BILL CO2 26 23 - 31 mmol/L [facility] ACCOUNT BILL Calcium 9.4 8.4 - 10.4 mg/dL [facility] ACCOUNT BILL Blood BLOOD SPECIMEN / Unknown 01/12/2022 8:57 AM CDT 01/12/2022 Narrative Resulting Agency Comment Lab Testing performed at: [facility] [address] [place] [id number] Burke Trent MD LAB - CHEMISTRY DANETTE HARRIS [facility] ACCOUNT BILL [address] [place] [address] * INTERPRETATION REFLEXED (07/14/2020 8:21 AM CDT) Interpretation [facility] ACCOUNT BILL Comment: Negative Not infected with HCV, unless recent infection is suspected or other evidence exists to indicate HCV infection. FASTING 07/14/2020 8:21 AM CDT 07/14/2020 Narrative Resulting Agency Comment Lab Testing performed at: [employer] [facility] [phone] Burke Trent MD LAB - SEROLOGY ORDER JOHANN Performing Organization Address City/[facility]/ZIP Co de Phone Number [facility] ACCOUNT BILL [address] [place] [address] * HEPATITIS C ANTIBODY W RFLX PCR (07/14/2020 8:21 AM CDT) Pathologist [facility] Hepatitis C Antibody 0.2 0.0 - 0.9 s/co ratio [facility] ACCOUNT BILL Comment:FASTING Blood BLOOD SPECIMEN / Unknown 07/14/2020 8:21 AM CDT 07/14/2020 Narrative Resulting Agency Comment Lab Testing performed at: [email or web address] [place] [address] [facility] [id number] Burke Trent MD LAB - CHEMISTRY DANETTE HARRIS [facility] ACCOUNT BILL [address] [place] [address] * HIV-1 RNA QUALITATIVE RFLXD (07/14/2020 8:21 AM CDT) Pathologist [facility] HIV-1 RNA Qualitative Negative Negative [facility] ACCOUNT BILL Comment:Negative for HIV-1 R NA Final Interpretation [facility] ACCOUNT BILL Comment: HIV antibodies were not confirmed and HIV 1 RNA was not detected. No laboratory evidence of HIV 1 infection. Follow-up testing for HIV 2 should be performed if clinically indicated. FASTING 07/14/2020 8:21 AM CDT 07/14/2020 Narrative Resulting Agency Comment Lab Testing performed at: [facility] [place] [address] [facility] [phone] Burke Trent MD LAB - CHEMISTRY [facility] ACCOUNT BILL [address] [place] [address] * HIV-1 HIV-2 ANTIBODY W REFLX (07/14/2020 8:21 AM CDT) HIV-1 Antibody Negative Negative [facility] ACCOUNT BILL HIV-2 Antibody Negative Negative [facility] ACCOUNT BILL Interpretation Negative [facility] ACCOUNT BILL Comment: See RNA Reflex. FASTING Blood BLOOD SPECIMEN / Unknown 07/14/2020 8:21 AM CDT 07/14/2020 Narrative Resulting Agency Comment Lab Testing performed at: [facility] [place] [address] [facility] [phone] Burke Trent MD LAB - SEROLOGY ORDER JOHANN Performing Organization Address City/[facility]/ZIP Co de Phone Number [facility] ACCOUNT BILL [address] [place] [address] * CARDIAC STRESS ECHO ORDER (03/18/2017) Piper Ortega MD CARDIAC SERVICES ORD [facility] Care Teams New Car Inspector Relationship Specialty Start Date End Date Burke Trent MD [address] [facility] [address] [place] [address] PCP - General Internal Medicine 11/15/14 Felipe Robbins MD [address] [facility] [address] [place] [address] [employer]ime Plant Operator Helper Cardiology 07/13/22
--- OUTSIDE RECORDS SUMMARY | 2024-12-23 17:06 | XMS_ITS | Clinical Summary ---
Author Organization [facility] [employer] Address [address] [place] [address] Care Team Providers Care Passementerie Worker Name Role Phone Burke Trent MD Primary Care Provider Felipe Robbins MD Unavailable [phone] Source Comments [facility],non-owned Affiliates and Associated Physician Practices is amultiple site organization consisting of ambulatory clinics and hospital sitesin [place], [place], [place] and [place]. This disclosure is being madepursuant to the Care Everywhere program and may not contain all information available regarding this patient. Last updated 18.[facility] [employer] Allergies Active Allergy Reactions Criticality Noted Date Comments Lisinopril Angioedema High 08/16/2023 Lip swelling voice changes Medications * Be aware that medications may not be up to date on this document. Alwaysverify current medications with the patient. Medication Sig Dispensed Refills Start Date End Date Status carvedilol (Coreg) 3.125 MG tabletIndications:Hype rtension Take 1 (one) tablet by mouth once daily Reasons: High Blood Pressure 180 tablet 1 11/05/2024 Active simvastatin (Zocor) 20 MG tabletIndications:Hype rlipidemia, unspecified hyperlipidemia type Take 1 (one) tablet by mouth at bedtime 90 tablet 1 11/05/2024 Active Active Problems Problem Noted Date Diagnosed Date Venous reflux 01/24/2023 Overview (01/24/2023): RLE duplex. Hypertension 08/11/2012 Overview (07/19/2023): Blood pressure variable 120-130/?, complaint with lisinopril-active/diet improved Assessment & Plan (07/19/2023 9:11 AM CDT): Continue Assessment & Plan (01/11/2023 9:14 AM CDT): Increase lisinopril 30 mg Assessment & Plan (07/13/2022 8:48 AM CDT): Continue liisnopril Assessment & Plan (01/12/2022 8:34 AM CDT): Continue current medication Assessment & Plan (10/26/2021 11:29 AM FASHION ADVISER): Check bmp, Assessment & Plan (07/14/2021 7:45 AM CDT): Continue lisinopril/metoprolol Assessment & Plan (01/09/2021 7:42 AM CDT): Continue lisinopril/metoprolol Assessment & Plan (07/11/2020 8:33 AM CDT): Continue current medication. Assessment & Plan (01/01/2020 12:53 PM FASHION ADVISER): Continue current medication. Assessment & Plan (06/15/2019 8:09 AM CDT): Continue current medication. Assessment & Plan (12/09/2018 7:32 AM FASHION ADVISER): Continue current medication. Assessment & Plan (06/06/2018 7:26 AM CDT): Continue current medication. Assessment & Plan (11/29/2017 9:00 AM FASHION ADVISER): Continue current medication. Assessment & Plan (05/17/2017 7:27 AM CDT): Add metoprolol xl 25 mg qd Assessment & Plan (11/16/2016 8:04 AM FASHION ADVISER): Continue current medication. Assessment & Plan (05/10/2016 8:06 AM CDT): Continue current medication. Assessment & Plan (11/10/2015 7:55 AM FASHION ADVISER): Continue current medication. Assessment & Plan (05/05/2015 4:13 PM CDT): Continue current med/dose. Assessment & Plan (11/15/2014 9:03 AM FASHION ADVISER): Continue current med/dose. Hyperlipidemia Overview (01/27/2023): Off medication due to cost- no myalgia -FH CAD 12/2022 3.2% Assessment & Plan (07/19/2023 9:13 AM CDT): Check labs- stricter diet Assessment & Plan (01/11/2023 9:14 AM CDT): Check labs Assessment & Plan (07/13/2022 8:53 AM CDT): Check labs, resume based on readings Assessment & Plan (01/12/2022 8:36 AM CDT): Add fish oil to raise HDL Assessment & Plan (07/14/2021 7:46 AM CDT): Check lipid panel Assessment & Plan (01/09/2021 7:43 AM CDT): Check lipid panel and adjust zocor accordingly. Assessment & Plan (07/11/2020 8:34 AM CDT): Check labs and adjust medication accordingly. Assessment & Plan (01/01/2020 12:53 PM FASHION ADVISER): Check labs and adjust medication accordingly. Assessment & Plan (06/15/2019 8:09 AM CDT): Check labs and adjust medication accordingly. Assessment & Plan (12/09/2018 7:36 AM FASHION ADVISER): Check lipid panel Assessment & Plan (06/06/2018 7:29 AM CDT): Check panel Assessment & Plan (11/29/2017 9:01 AM FASHION ADVISER): Check lipid panel at next visit Assessment & Plan (05/17/2017 7:19 AM CDT): Check labs and considermedication Assessment & Plan (11/16/2016 8:04 AM FASHION ADVISER): Check lipid panel Assessment & Plan (05/10/2016 8:07 AM CDT): Check lipid panel- consider medication Assessment & Plan (11/10/2015 7:56 AM FASHION ADVISER): Check labs and adjust medication accordingly. Resolved Problems Problem Noted Date Diagnosed Date Resolved Date Syncope 07/19/2023 02/05/2024 Overview (07/19/2023): 05/2023- at work- working in heat earlier- no chest pain/palpitations- no seizure activity/sequela-ER negative lab/ekg Similar 09/2022, 12/2022(chest pain) Assessment & Plan (07/19/2023 9:25 AM CDT): Check cardiac CT Consider periodic hypokalemia Encounters Date Type Department Care Team Description 11/05/2024 9:00 AM FASHION ADVISER Office Visit [facility] - Internal Medicine [address] [place] [id number] Cait Rodriguez, JIG AND FIXTURE BUILDER-MACHINE PACKAGING TECHNICIAN Wellness examination (Primary Dx); Need for prophylactic vaccination and inoculation against influenza; Hyperlipidemia, unspecified hyperlipidemia type; Prostate cancer screening; Colon cancer screening; Primary hypertension; Diabetes mellitus screening; Decreased GFR; Elevated serum creatinine from Last 3 Months Immunizations Name Administration Dates Next Due INFLUENZA VACCINE 07/28/2014,08/11/2013 INFLUENZA VACCINE, QUADR. (A FLURIA, FLUZONE QUADRIVALENT; 6MO+) (IIV4) 09/03/2017 INFLUENZA VACCINE, QUADR. (F LUZONE; FLULAVAL; FLUARIX; AFLURIA QUADRIVALENT; 6MO+), 0.5 ML (IIV4) 07/19/2023,07/14/2021,01/09/2021 INFLUENZA VACCINE, TRIV. (FL UZONE; FLULAVAL; FLUARIX; AFLURIA TRIVALENT; 6MO+), 0.5 ML (IIV3) 11/05/2024 TD, HISTORIC VACCINE 08/09/2011 TDAP (7yrs+) 01/12/2022 TETANUS 08/09/2011 Family History Medical History Relation Name Comments COPD - Chronic Obstructive Pulmonary Disease Father CVA Father Cancer - Breast Maternal Grandmother [address] st Hypercholesterolemia Mother Hypertension Mother Relation Name Status Comments Father Maternal Grandfather Maternal Grandmother Mother Alive Paternal Grandfather Paternal Grandmother Social History Tobacco Use Types Packs/Day Years [...] Comments Blood Pressure 130/88 11/05/2024 8:49 AM FASHION ADVISER Pulse 72 11/05/2024 8:49 AM FASHION ADVISER Temperature 36.2 C (97.2 F) 11/05/2024 8:49 AM FASHION ADVISER Respiratory Rate 14 01/07/2023 5:50 PM CDT Oxygen Saturation 98% 11/05/2024 8:49 AM FASHION ADVISER Inhaled Oxygen Concentration - - Weight 117.8 kg (259 lb 9.6 oz) 11/05/2024 8:49 AM FASHION ADVISER Height 188 cm (6' 2 ) 11/05/2024 8:49 AM FASHION ADVISER Body Mass Index 33.33 11/05/2024 8:49 AM FASHION ADVISER Plan of Treatment Upcoming Encounters Date Type Department Care Team (Late st Contact Info) Description 05/05/2025 8:20 AM CDT Office Visit [facility] - Internal Medicine [address] [address] Cait Rodriguez, J[employer] AND FIXTURE BUILDER-MACHINE PACKAGING TECHNICIAN [address] [place] [id number] Health Maintenance Due Date Last Done Comments COLOGUARD (AGES 45-75) - COLON CA SCREENING 1977 COLON MONITORING 1977 COLONOSCOPY - COLON CA SCREENING 1977 CT COLONOGRAPHY - COLON CA SCREENING 1977 Colorectal Cancer Screening 1977 FIT - COLON CA SCREENING 1977 FLEX SIG - COLON CA SCREENING 1977 COVID-19 VACCINE (2023- season) 2024 ZOSTER VACCINE (1 of 2) 2027 SCREENING FOR DIABETES 11/05/2027 , 11/05/2024, 01/23/2023, Additional history exists DTAP/TDAP/TD VACCINES (4 - Td or Tdap) 01/13/2032 01/12/2022, 08/09/2011, 08/09/2011 HEPATITIS C SCREENING Completed 07/14/2020 HIV SCREENING Completed 07/14/2020 DEPRESSION SCREENING Completed 11/05/2024, 02/05/2024, 07/19/2023, Additional history exists INFLUENZA VACCINE Completed 11/05/2024, , 07/14/2021, Additional history exists HEPATITIS B VACCINE Discontinued HIB VACCINE Aged Out No longer eligi ble based on patient's age to complete this topic HPV VACCINE Aged Out No longer eligi ble based on patient's age to complete this topic MENINGOCOCCAL (Group B) VACCINE Aged Out No longer eligible based on patient's age to complete this topic MENINGOCOCCAL VACCINE Aged Out No zulay julio cesar eligible based on patient's age to complete this topic PNEUMOCOCCAL VACCINE Aged Out No long er eligible based on patient's age to complete this topic Goals Goal Patient Goal Type Associated Problems Recent Progress Patient-Stated? Author Blood Pressure < 140/90 Blood Pressure 130/88( 025 8:49 AM FASHION ADVISER) No Anahi Richardson Procedures Procedure Name Priority Date/Time Associated Diagnosis Comments TSH REFLEX FREE T4 Routine 11/05/2024 10 :20 AM FASHION ADVISER Wellness examination Hyperlipidemia, unspecified hyperlipidemia type Primary hypertension PROSTATE SPECIFIC ANTIGEN SCREEN Routine 11/05/2024 10:20 AM FASHION ADVISER Prostate cancer screening HEMOGLOBIN A1C Routine 11/05/2024 10:20 AM FASHION ADVISER Diabetes mellitus screening LIPID PROFILE Routine 11/05/2024 10:20 AM FASHION ADVISER Hyperlipidemia, unspecified hyperlipidemia type COMPREHENSIVE METABOLIC PANEL Routine 11/05/2024 10:20 AM FASHION ADVISER Wellness examination Need for prophylactic vaccination and inoculation against influenza Hyperlipidemia, unspecified hyperlipidemia type Decreased GFR HEPATITIS C ANTIBODY W RFLX PCR Routine 07/14/2020 8:21 AM CDT Need for hepatitis C screening test HIV-1 HIV-2 ANTIBODY W REFLX Routine 07/14/2020 8:21 AM CDT Encounter for screening for HIV from Last 3 Months or Most Recently Relevant to Health Maintenance Results * TSH REFLEX FREE T4 (11/05/2024 10:20 AM FASHION ADVISER) TSH 0.682 0.350 - 4.940 uIU/mL [facility] ACCOUNT BILL Blood BLOOD SPECIMEN / Unknown 11/05/2024 10:20 AM FASHION ADVISER 11/05/2024 Narrative [facility] ACCOUNT BILL - 11/05/2024 5:07 PM FASHION ADVISER Performed at: [address] [place] [address] [address], [place], [place] [id number] [employer] Professor: Donn Rodriguez MD, Phone: [phone] Cait Rodriguez APRN-DOUG LAB - CHEMISTRY O RDERABLES [facility] ACCOUNT BILL [address] [place] [address] * HEMOGLOBIN A1C (11/05/2024 10:20 AM FASHION ADVISER) Hemoglobin A1c 5.3 <5.7 % [facility] [...] (HbF) exceeds 5% in the specimen. The Paez Alinity assay for the measurement of HbA1c is a [facility] Glycohemoglobin Standardization Program (NGSP) certi fied method. Blood BLOOD SPECIMEN / Unknown 11/05/2024 10:20 AM FASHION ADVISER 11/05/2024 Narrative [facility] ACCOUNT BILL - 11/05/2024 5:07 PM FASHION ADVISER Performed at: [address] [place] [address] [address] [place] [id number] [employer] Professor: Donn Rodriguez MD, Phone: [phone] Cait CONLEY LAB - CHEMISTRY O RDERABLES [facility] ACCOUNT BILL [address] [place] [address] * (ABNORMAL) COMPREHENSIVE METABOLIC PANEL (11/05/2024 10:20 AM FASHION ADVISER) Glucose 99 70 - 99 mg/dL [facility] [...] BLOOD SPECIMEN / Unknown 11/05/2024 10:20 AM FASHION ADVISER 11/05/2024 Narrative [facility] ACCOUNT BILL - 11/05/2024 5:07 PM FASHION ADVISER Performed at: [address] [place] [address] [employer] , [place], [place] [id number] [employer] Professor: Donn Rodriguez MD, Phone: [phone] Cait Rodriguez APRN-MACHINE PACKAGING TECHNICIAN LAB - CHEMISTRY O RDERABLES [facility] ACCOUNT BILL [address] [place] [address] * PROSTATE SPECIFIC ANTIGEN SCREEN (11/05/2024 10:20 AM FASHION ADVISER) Pathologist [facility] PSA 0.98 <=4.00 ng/mL [facility] ACCOUNT BILL Comment: PSA values will vary depending on testing procedure used. R esults are not comparable across different methods. PSA jeremy ues obtained by [facility] (not [facility]) use the Paez Alini ty immunoassay method. Blood BLOOD SPECIMEN / Unknown 11/05/2024 10:20 AM FASHION ADVISER 11/05/2024 Narrative [facility] ACCOUNT BILL - 11/05/2024 5:07 PM FASHION ADVISER Performed at: - [facility] [address] [place], [place] [id number] [employer] Professor: Donn Rodriguez MD, Phone: [phone] Cait Rodriguez APRN-MACHINE PACKAGING TECHNICIAN LAB - CHEMISTRY O RDERABLES Performing Organization Address City/[facility] Co de Phone Number [facility] ACCOUNT BILL [address] [place] [address] * (ABNORMAL) LIPID PROFILE (11/05/2024 10:20 AM FASHION ADVISER) Cholesterol 221(H) <200 mg/dL [facility] ACCOUNT BILL Triglycerides 61 <150 mg/dL [facility] ACCOUNT BILL HDL Cholesterol 41 >40 mg/dL [facility] ACCOUNT BILL VLDL Calculated 12 <=30 mg/dL [facility] ACCOUNT BILL LDL Calculated 168(H) <130 mg/dL [facility] ACCOUNT BILL Blood BLOOD SPECIMEN / Unknown 11/05/2024 10:20 AM FASHION ADVISER 11/05/2024 Narrative [facility] ACCOUNT BILL - 11/05/2024 5:07 PM FASHION ADVISER Performed at: - [facility] [address] [facility] [place], [place] [id number] [employer] Professor: Donn Rodriguez MD, Phone: [phone] Cait BELLEMACHINE PACKAGING TECHNICIAN LAB - CHEMISTRY O RDERABLES Performing Organization Address City/[facility] Co de Phone Number [facility] ACCOUNT BILL [address] [place] [address] * HEPATITIS C ANTIBODY W RFLX PCR (07/14/2020 8:21 AM CDT) Hepatitis C Antibody 0.2 0.0 - 0.9 s/co ratio [facility] ACCOUNT BILL Comment:FASTING Blood BLOOD SPECIMEN / Unknown 07/14/2020 8:21 AM CDT 07/14/2020 Narrative Resulting Agency Comment Lab Testing performed at: [facility] [place] [address] [phone] Burke Trent MD LAB - CHEMISTRY ORDE KIMBERLY [facility] ACCOUNT BILL [address] [place] [address] * HIV-1 HIV-2 ANTIBODY W REFLX (07/14/2020 8:21 AM CDT) HIV-1 Antibody Negative Negative [facility] ACCOUNT BILL HIV-2 Antibody Negative Negative [facility] ACCOUNT BILL Interpretation Negative [facility] ACCOUNT BILL Comment: See RNA Reflex. FASTING Blood BLOOD SPECIMEN / Unknown 07/14/2020 8:21 AM CDT 07/14/2020 Narrative Resulting Agency Comment Lab Testing performed at: [facility] [place] [address] [facility] [phone] uBrke Trent MD LAB - SEROLOGY ORDER JOHANN Performing Organization Address City/[facility] Co de Phone Number [facility] ACCOUNT BILL [address] [place] [address] from Last 3 Months or Most Recently Relevant to Health Maintenance Care Teams Passementerie Worker Relationship Specialty Start Date End Date Burke Trent MD [address] [place] [address] PCP - General Internal Medicine 11/15/14 Felipe Robbins MD [facility], [address] [place], [place] [address] Leather Worker Cardiology 07/13/22
--- OUTSIDE RECORDS SUMMARY | 2024-12-23 17:06 | XMS_ITS | Clinical Summary ---
Author Organization [facility] Address [facility] [place] [address] Care Team Providers Care Compounder Helper Name Role Phone Burke Trent MD Primary Care Provider [phone] Allergies No known active allergies Medications lisinopril 20 MG tablet Take 20 mg by mouth every other day. 12/16/2021 Active metoprolol succinate ER 25 MG 24 hr tablet Take 25 mg by mouth daily. 12/16/2021 Active simvastatin 20 MG tablet Take 20 mg by mouth nightly at bedtime. at bedtime. 12/16/2021 Active vitamin C 500 MG tablet Take 500 mg by mouth daily. Active Active Problems Problem Noted Date Diagnosed Date Hyperlipidemia 12/22/2019 Overview (05/02/2022): Doing well with medication- no myalgia- recen tlabs controlled -FH CAD AHA risk- 05/2019 3.1%, 12/2020- 1.7 Last Assessment & Plan: Add fish oil to raise HDL Hypertension 08/11/2012 Overview (05/02/2022): Blood pressure improved off hydrochlorothiazide, complaint with lisinopril/metoprolol Last Assessment & Plan: Continue current medication Family History Medical History Relation Comments COPD Father Stroke Father Hypertension Mother Pacemaker Mother Relation Status Comments Father Mother Social History Tobacco Use Types Packs/Day Years Used Date Smoking Tobacco: Never Smokeless Tobacco: Never Alcohol Use Standard Drinks/Week Comments Not Currently 0 (1 standard drink = 0.6 oz pur e alcohol) Sex and Gender Information Value Date Recorded Sex Assigned at Not on file Legal Sex Male 5:14 PM CDT Gender Identity Not on file Sexual Orientation Not on file Last Filed Vital Signs Vital Sign Reading Time Taken Comments Blood Pressure 104/70 05/02/2022 10:30 AM CDT Pulse 83 05/02/2022 10:30 AM CDT Temperature 36 C (96.8 F) 05/01/2022 10:22 AM CDT Respiratory Rate 18 05/01/2022 2:00 PM CDT Oxygen Saturation 98% 05/02/2022 10:30 AM CDT Inhaled Oxygen Concentration - - Weight 118.4 kg (261 lb) 05/02/2022 10:30 AM CDT Height 193 cm (6' 4 ) 05/02/2022 10:30 AM CDT Body Mass Index 31.77 05/02/2022 10:30 AM CDT Plan of Treatment Health Maintenance Due Date Last Done Comments Colorectal Cancer Screening Colonoscopy (10 Years) 1977 Annual Physical 1980 Hepatitis C 1995 Hepatitis B Vaccines (1 of 3 - 19+ 3-dose series) 1996 COVID-19 Vaccine (2023- season) 2024 Influenza Adult (#1) 2024 07/14/2021, 01/09/2021, 09/03/2017, Additional history exists DTaP, Tdap and Td Vaccines (2 - Td or Tdap) 01/13/2032 01/12/2022 Meningococcal B Vaccine Aged Out No l onger eligible based on patient's age to complete this topic Meningococcal Vaccine Aged Out No zulay julio cesar eligible based on patient's age to complete this topic Pneumococcal Vaccine: Pediatrics (0 to 5 Years) and At-Risk Patients (6 to 64 Years) Aged Out No longer eligible based on patient's age to complete this topic RSV Immunizations Under 20 Months Aged Out No longer eligible based on patient's age to complete this topic Care Teams Compounder Helper Relationship Specialty Start Date End Date Burke Trent MD [address] [address] PCP - General INTERNAL MEDICINE 05/01/22
--- OUTSIDE RECORDS SUMMARY | 2024-12-23 17:06 | XMS_ITS | Referral Summary ---
Author Organization [facility] Address [address] [place] [address] Care Team Providers Care Laundromat Worker Name Role Phone Burke Trent MD Primary Care Provider [phone] Felipe Robbins MD Unavailable [phone] Source Comments [facility] Affiliates and Associated Physician Practices is amultiple site organization consisting of ambulatory clinics and hospital sitesin [place], [place], [place] and [place]. This disclosure is being madepursuant to the Care Everywhere program and may not contain all information available regarding this patient. Last updated 18.[facility] Encounters Date Type Department Care Team Description 11/05/2024 9:00 AM ORE CRUSHING DUST COLLECTOR Office Visit [facility] - Internal Medicine [facility] [place] [address] Cait Rodriguez, INSTRUCTOR PAINTING-INFORMATION SYSTEMS MANAGER Wellness examination (Primary Dx); Need for prophylactic vaccination and inoculation against influenza; Hyperlipidemia, unspecified hyperlipidemia type; Prostate cancer screening; Colon cancer screening; Primary hypertension; Diabetes mellitus screening; Decreased GFR; Elevated serum creatinine from Last 3 Months Allergies Active Allergy [...] medication Assessment & Plan (10/26/2021 11:29 AM ORE CRUSHING DUST COLLECTOR): Check bmp, Assessment & Plan (07/14/2021 7:45 AM CDT): Continue lisinopril/metoprolol Assessment & Plan (01/09/2021 7:42 AM CDT): Continue lisinopril/metoprolol Assessment & Plan (07/11/2020 8:33 AM CDT): Continue current medication. Assessment & Plan (01/01/2020 12:53 PM ORE CRUSHING DUST COLLECTOR): Continue current medication. Assessment & Plan (06/15/2019 8:09 AM CDT): Continue current medication. Assessment & Plan (12/09/2018 7:32 AM ORE CRUSHING DUST COLLECTOR): Continue current medication. Assessment & Plan (06/06/2018 7:26 AM CDT): Continue current medication. Assessment & Plan (11/29/2017 9:00 AM ORE CRUSHING DUST COLLECTOR): Continue current medication. Assessment & Plan (05/17/2017 7:27 AM CDT): Add metoprolol xl 25 mg qd Assessment & Plan (11/16/2016 8:04 AM ORE CRUSHING DUST COLLECTOR): Continue current medication. Assessment & Plan (05/10/2016 8:06 AM CDT): Continue current medication. Assessment & Plan (11/10/2015 7:55 AM ORE CRUSHING DUST COLLECTOR): Continue current medication. Assessment & Plan (05/05/2015 4:13 PM CDT): Continue current med/dose. Assessment & Plan (11/15/2014 9:03 AM ORE CRUSHING DUST COLLECTOR): Continue current med/dose. Hyperlipidemia Overview (01/27/2023): Off [...] accordingly. Assessment & Plan (01/01/2020 12:53 PM ORE CRUSHING DUST COLLECTOR): Check labs and adjust medication accordingly. Assessment & Plan (06/15/2019 8:09 AM CDT): Check labs and adjust medication accordingly. Assessment & Plan (12/09/2018 7:36 AM ORE CRUSHING DUST COLLECTOR): Check lipid panel Assessment & Plan (06/06/2018 7:29 AM CDT): Check panel Assessment & Plan (11/29/2017 9:01 AM ORE CRUSHING DUST COLLECTOR): Check lipid panel at next visit Assessment & Plan (05/17/2017 7:19 AM CDT): Check labs and considermedication Assessment & Plan (11/16/2016 8:04 AM ORE CRUSHING DUST COLLECTOR): Check lipid panel Assessment & Plan (05/10/2016 8:07 AM CDT): Check lipid panel- consider medication Assessment & Plan (11/10/2015 7:56 AM ORE CRUSHING DUST COLLECTOR): Check labs and adjust medication accordingly. Resolved Problems Problem Noted Date Diagnosed Date Resolved Date Syncope 07/19/2023 02/05/2024 Overview (07/19/2023): 05/2023- at work- working in heat earlier- no chest pain/palpitations- no seizure activity/sequela-ER negative lab/ekg Similar 09/2022, 12/2022(chest pain) Assessment & Plan (07/19/2023 9:25 AM CDT): Check cardiac CT Consider periodic hypokalemia Immunizations Name Administration Dates Next Due INFLUENZA VACCINE 07/28/2014,08/11/2013 INFLUENZA VACCINE, QUADR. (A FLURIA, FLUZONE QUADRIVALENT; 6MO+) (IIV4) 09/03/2017 INFLUENZA VACCINE, QUADR. (F LUZONE; FLULAVAL; FLUARIX; AFLURIA QUADRIVALENT; 6MO+), 0.5 ML (IIV4) 07/19/2023,07/14/2021,01/09/2021 INFLUENZA VACCINE, TRIV. (FL UZONE; FLULAVAL; FLUARIX; AFLURIA TRIVALENT; 6MO+), 0.5 ML (IIV3) 11/05/2024 TD, HISTORIC VACCINE 08/09/2011 TDAP (7yrs+) 01/12/2022 TETANUS 08/09/2011 Social History Tobacco Use Types Packs/Day Years [...] Comments Blood Pressure 130/88 11/05/2024 8:49 AM ORE CRUSHING DUST COLLECTOR Pulse 72 11/05/2024 8:49 AM ORE CRUSHING DUST COLLECTOR Temperature 36.2 C (97.2 F) 11/05/2024 8:49 AM ORE CRUSHING DUST COLLECTOR Respiratory Rate 14 01/07/2023 5:50 PM CDT Oxygen Saturation 98% 11/05/2024 8:49 AM ORE CRUSHING DUST COLLECTOR Inhaled Oxygen Concentration - - Weight 117.8 kg (259 lb 9.6 oz) 11/05/2024 8:49 AM ORE CRUSHING DUST COLLECTOR Height 188 cm (6' 2 ) 11/05/2024 8:49 AM ORE CRUSHING DUST COLLECTOR Body Mass Index 33.33 11/05/2024 8:49 AM ORE CRUSHING DUST COLLECTOR Plan of Treatment Upcoming Encounters Date Type Department Care Team (Late st Contact Info) Description 05/05/2025 8:20 AM CDT Office Visit [facility] - Internal Medicine [address] [address] Cait Rodriguez, INSTRUCTOR PAINTING-INFORMATION SYSTEMS MANAGER [address] [place] [id number] Goals Goal Patient Goal Type Associated Problems Recent Progress Patient-Stated? Author Blood Pressure < 140/90 Blood Pressure 130/88( 025 8:49 AM ORE CRUSHING DUST COLLECTOR) Anahi Rosenberg Procedures Procedure Name Priority Date/Time Associated Diagnosis Comments TSH REFLEX FREE T4 Routine 11/05/2024 10 :20 AM ORE CRUSHING DUST COLLECTOR Wellness examination Hyperlipidemia, unspecified hyperlipidemia type Primary hypertension PROSTATE SPECIFIC ANTIGEN SCREEN Routine 11/05/2024 10:20 AM ORE CRUSHING DUST COLLECTOR Prostate cancer screening HEMOGLOBIN A1C Routine 11/05/2024 10:20 AM ORE CRUSHING DUST COLLECTOR Diabetes mellitus screening LIPID PROFILE Routine 11/05/2024 10:20 AM ORE CRUSHING DUST COLLECTOR Hyperlipidemia, unspecified hyperlipidemia type COMPREHENSIVE METABOLIC PANEL Routine 11/05/2024 10:20 AM ORE CRUSHING DUST COLLECTOR Wellness examination Need for prophylactic vaccination and [...] TSH REFLEX FREE T4 (11/05/2024 10:20 AM ORE CRUSHING DUST COLLECTOR) TSH 0.682 0.350 - 4.940 uIU/mL [facility] ACCOUNT BILL Blood BLOOD SPECIMEN / Unknown 11/05/2024 10:20 AM ORE CRUSHING DUST COLLECTOR 11/05/2024 Narrative [facility] ACCOUNT BILL - 11/05/2024 5:07 PM ORE CRUSHING DUST COLLECTOR Performed at: [address] [place] [address] [address], DAWNA Nieves [id number] [place] Operator: Donn Rodriguez MD, Phone: [phone] Cait Srinath Rodriguez INSTRUCTOR PAINTING-INFORMATION SYSTEMS MANAGER LAB - CHEMISTRY O RDERABLES [facility] ACCOUNT BILL [address] [place] [address] * HEMOGLOBIN A1C (11/05/2024 10:20 AM ORE CRUSHING DUST COLLECTOR) [facility] Hemoglobin A1c 5.3 <5.7 % [facility] [...] (HbF) exceeds 5% in the specimen. The Responde Ainity assay for the measurement of HbA1c is a [facility] Glycohemoglobin Standardization Program (NGSP) certi fied method. Blood BLOOD SPECIMEN / Unknown 11/05/2024 10:20 AM ORE CRUSHING DUST COLLECTOR 11/05/2024 Narrative [facility] ACCOUNT BILL - 11/05/2024 5:07 PM ORE CRUSHING DUST COLLECTOR Performed at: [address] [place] [address], [place] [id number] [place] Operator: Donn Rodriguez MD, Phone: [phone] Cait [place] LAB - CHEMISTRY O RDERABLES [facility] ACCOUNT BILL [address] [place] [address] * (ABNORMAL) COMPREHENSIVE METABOLIC PANEL (11/05/2024 10:20 AM ORE CRUSHING DUST COLLECTOR) Pathologist [facility] Glucose 99 70 - 99 mg/dL [facility] [...] BLOOD SPECIMEN / Unknown 11/05/2024 10:20 AM ORE CRUSHING DUST COLLECTOR 11/05/2024 Narrative [facility] ACCOUNT BILL - 11/05/2024 5:07 PM ORE CRUSHING DUST COLLECTOR Performed at: [address] [place] [address], [place] [id number] [place] Operator: Donn Rodriguez MD, Phone: [phone] Cait D Jennifer INSTRUCTOR PAINTING-INFORMATION SYSTEMS MANAGER LAB - CHEMISTRY O RDERABLES [facility] ACCOUNT BILL [address] [place] [address] * PROSTATE SPECIFIC ANTIGEN SCREEN (11/05/2024 10:20 AM ORE CRUSHING DUST COLLECTOR) PSA 0.98 <=4.00 ng/mL [facility] ACCOUNT BILL Comment: PSA values will vary depending on testing procedure used. R esults are not comparable across different methods. PSA jeremy ues obtained by [facility] (not [facility]) use the Paez Alini ty immunoassay method. Blood BLOOD SPECIMEN / Unknown 11/05/2024 10:20 AM ORE CRUSHING DUST COLLECTOR 11/05/2024 Narrative [facility] ACCOUNT BILL - 11/05/2024 5:07 PM ORE CRUSHING DUST COLLECTOR Performed at: [address] [place] [address] [address] [place], [place] [id number] [place] Operator: Donn Rodriguez MD, Phone: [phone] Cait Rodriguez APRN-INFORMATION SYSTEMS MANAGER LAB - CHEMISTRY O RDERABLES Performing Organization Address City/[facility]/ZIP Co de Phone Number [facility] ACCOUNT BILL [address] [place] [address] * (ABNORMAL) LIPID PROFILE (11/05/2024 10:20 AM ORE CRUSHING DUST COLLECTOR) Cholesterol 221(H) <200 mg/dL [facility] ACCOUNT BILL Triglycerides 61 <150 mg/dL [facility] ACCOUNT BILL HDL Cholesterol 41 >40 mg/dL [facility] ACCOUNT BILL VLDL Calculated 12 <=30 mg/dL [facility] ACCOUNT BILL LDL Calculated 168(H) <130 mg/dL [facility] ACCOUNT BILL Blood BLOOD SPECIMEN / Unknown 11/05/2024 10:20 AM ORE CRUSHING DUST COLLECTOR 11/05/2024 Narrative [facility] ACCOUNT BILL - 11/05/2024 5:07 PM ORE CRUSHING DUST COLLECTOR Performed at: [address] [place] [address] [address] [place], [place] [id number] [place] Operator: Donn Rodriguez MD, Phone: [phone] Cait Rodriguez APRN-INFORMATION SYSTEMS MANAGER LAB - CHEMISTRY O RDERABLES [facility] ACCOUNT BILL [address] [place] [address] * HEPATITIS C ANTIBODY W RFLX PCR (07/14/2020 8:21 AM CDT) Hepatitis C Antibody 0.2 0.0 - 0.9 s/co ratio [facility] ACCOUNT BILL Comment:FASTING Blood BLOOD SPECIMEN / Unknown 07/14/2020 8:21 AM CDT 07/14/2020 Narrative Resulting Agency Comment Lab Testing performed at: [facility] [address] [facility] [id number] Burke Trent MD LAB - CHEMISTRY ORDE RABCHUNG Performing Organization Address City/[facility] Co de Phone Number [facility] ACCOUNT BILL [address] [place] [address] * HIV-1 HIV-2 ANTIBODY W REFLX (07/14/2020 8:21 AM CDT) HIV-1 Antibody Negative Negative [facility] ACCOUNT BILL HIV-2 Antibody Negative Negative [facility] ACCOUNT BILL Interpretation Negative [facility] ACCOUNT BILL Comment: See RNA Reflex. FASTING Blood BLOOD SPECIMEN / Unknown 07/14/2020 8:21 AM CDT 07/14/2020 Narrative Resulting Agency Comment Lab Testing performed at: [facility] [address] [facility] [phone] Burke Trent MD LAB - SEROLOGY ORDER JOHANN [facility] ACCOUNT BILL [address] [place] [address] from Last 3 Months or Most Recently Relevant to Health Maintenance Care Teams Laundromat Worker Relationship Specialty Start Date End Date Burke Trent MD [address] [place] [address] [address] [place] [address] PCP - General Internal Medicine 11/15/14 Felipe Robbins MD [facility], [address] [place] [address] Email Administrator Cardiology 07/13/22
--- OUTSIDE RECORDS SUMMARY | 2024-12-23 17:06 | XMS_ITS | Clinical Summary ---
Author Organization [facility] Address [address] [place] [address] Phone Care Team Providers Care Naturalization Examiner Name Role Phone Burke Trent MD Primary Care Provider Allergies No known active allergies Medications ketorolac (TORADOL) 10 MG Tablet Take 1 Tablet by mouth every 6 hours as needed for Moderate or more severe pain. 20 Tablet 2 Active HYDROcodone-messi taminophen (NORCO) 5-325 MG TabletIndicatio ns:Left-sided chest wall pain Take 1-2 Tablets by mouth every 4 hours as needed for Severe pain. 10 Tablet 2 Active naloxone HCl (Narcan) 4 MG/0.1ML Liquid 1 Harper by Nasal route as needed (opioid overdose). administer for symptoms of overdose (severe sleepiness, breathing problems, not responsive). Call 911. May use additional dose to repeat 1 spray intranasally in 2-3 minutes if needed. 2 Each 2 Active Social History Tobacco Use Types Packs/Day Years Used Date Smoking Tobacco: Never Smokeless Tobacco: Never Tobacco Cessation:Counseling Given: Not Answered Sex and Gender Information Value Date Recorded Sex Assigned at Not on file Legal Sex Male 2:52 AM RAIL SIGNAL WORKER Gender Identity Not on file Sexual Orientation Not on file Last Filed Vital Signs Vital Sign Reading Time Taken Comments Blood Pressure 131/79 09/27/2022 2:00 PM RAIL SIGNAL WORKER Pulse 65 09/27/2022 2:00 PM RAIL SIGNAL WORKER Temperature 36.6 C (97.8 F) 09/27/2022 10:17 AM RAIL SIGNAL WORKER Respiratory Rate 20 09/27/2022 10:17 AM RAIL SIGNAL WORKER Oxygen Saturation 93% 09/27/2022 2:00 PM RAIL SIGNAL WORKER Inhaled Oxygen Concentration - - Weight 113.4 kg (250 lb) 09/27/2022 10:17 AM RAIL SIGNAL WORKER Height 193 cm (6' 4 ) 09/27/2022 10:17 AM RAIL SIGNAL WORKER Body Mass Index 30.43 09/27/2022 10:17 AM RAIL SIGNAL WORKER Plan of Treatment Health Maintenance Due Date Last Done Comments Hepatitis C Virus (HCV) Screening 1977 Hepatitis B Immunization (1 of 3 - 19+ 3-dose series) 1996 Colonoscopy 2022 Colorectal Cancer Screening 2022 Influenza Immunization (#1) 06/28/202406/28, 01/09/2021, 09/03/2017, Additional history exists SARS-COV-2 Immunization ( season) 2024 Respiratory Syncytial Virus (RSV) Immunization (Adult) (1 - 1-dose 75+ series) 2052 DTaP/Tdap/Td Immunization Discontinued 01/12/2022 TdaP Immunization Completed 01/12/2022 Meningococcal Immunization (ACWY) Aged Out No longer eligible based on patient's age to complete this topic Pneumococcal Immunization Combined Aged Out No longer eligible based on patient's age to complete this topic Rotavirus Immunization Aged Out No lo nger eligible based on patient's age to complete this topic Care Teams Naturalization Examiner Relationship Specialty Start Date End Date Burke Trent MD [address] [facility] [address] [place] [id number] PCP - General Internal Medicine 09/27/22
--- OUTSIDE RECORDS SUMMARY | 2024-12-23 17:06 | XMS_ITS | Clinical Summary ---
Author Organization [facility] Address [address] [place] [id number] Care Team Providers Care Jacquard Loom Card Changer Name Role Phone Burke Trent MD Primary Care Provider [phone] Allergies Active Allergy Reactions Criticality Noted Date [...] venous ligation along with stab phlebectomies and education technician ligations. Discussed procedures with the patient along [...] Prescription for compression stockings given. Hypercholesteremia Hypertension Encounters Date Type Department Care Team Description 10/13/2024 8:19 PM TAR POT MAN - 10/13/2024 11:36 PM [facility] Emergency [address] [address] Varicose veins of right lower extremity, unspecified whether complicated (Primary Dx) Discharge Disposition: Discharge to home or self care from Last 3 Months Surgical History Surgery Date Site/Laterality Comments VARICOSE VEIN SURGERY Medical History Medical History Date Comments Hypertension Hypercholesteremia Bilateral leg edema Social History Tobacco Use Types Packs/Day Years [...] on file Legal Sex Male 9:36 PM TAR POT MAN Gender Identity Not on file Sexual Orientation Not on file Obstetrics History Last Filed Vital Signs Vital Sign Reading Time Taken Comments Blood Pressure 145/84 10/13/2024 11:05 PM TAR POT MAN Pulse 75 10/13/2024 11:35 PM TAR POT MAN Temperature 36.7 C (98 F) 10/13/2024 8:19 PM TAR POT MAN Respiratory Rate 18 10/13/2024 11:35 PM TAR POT MAN Oxygen Saturation 100% 10/13/2024 11:35 PM TAR POT MAN Inhaled Oxygen Concentration - - Weight 117.9 kg (260 lb) 10/13/2024 8:19 PM TAR POT MAN Height 190.5 cm (6' 3 ) 10/13/2024 8:19 PM TAR POT MAN Body Mass Index 32.5 10/13/2024 8:19 PM TAR POT MAN Plan of Treatment Health Maintenance Due Date Last Done Comments Colon Cancer Screening-Colonoscopy 1977 Depression Screening 1977 Hepatitis C Screening 1977 Hepatitis B Screening 1995 Regular Well Visit/Exam 18-64 1995 Influenza Vaccine (#1) 2024 , 07/14/2021, 01/09/2021, Additional history exists DTaP/Tdap/Td Vaccine (2 - Td or Tdap) 01/13/2032 01/12/2022, 08/09/2011 Pneumococcal vaccine <65 Aged Out No longer eligible based on patient's age to complete this topic Procedures Procedure Name Priority Date/Time Associated Diagnosis Comments XR ANKLE RIGHT 3 OR MORE VIEWS ED 10/13/2024 10:17 PM TAR POT MAN from Last 3 Months Results * XR Ankle Right 3 or More Views (10/13/2024 10:17 PM TAR POT MAN) Anatomical Region Laterality Modality Lower Extremities, Ankle Right Compute d Radiography 10/13/2024 10:2 3 PM TAR POT MAN Narrative 10/13/2024 10:24 PM TAR POT MAN EXAM DESCRIPTION: XR ANKLE RIGHT 3 OR MORE VIEWS REASON FOR STUDY: cyst/ Pt here with c/o having a possible cyst to R anterior ankle, pt states he gets a throbbing pain with ambulation, denies fever and chills, 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 PMS [...] Ken Quintero D.O. 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 PMS [...] Ken Quintero D.O. PS T: Report ID: [id number] Reading Location: [id number] [facility] XR PROCEDURES Final Resu lt from Last 3 Months Insurance [facility] CHOICE PLUS [facility] OOS Care Teams Jacquard Loom Card Changer Relationship Specialty Start Date End Date Burke Trent MD [address] [place] [address] PCP - General Internal Medicine 07/08/22
--- OUTSIDE RECORDS SUMMARY | 2024-12-23 17:06 | XMS_ITS | Clinical Summary ---
Author Organization [facility] Address [address] [place] [address] Phone Care Team Providers Care Field Manager Name Role Phone Burke Trent MD Primary Care Provider Allergies No known active allergies Medications lisinopriL (PRINIVIL) 20 mg tablet Take 20 mg by mouth daily. 06/15/2019 Active metoprolol succinate (TOPROL XL) 25 mg Extended Release 24 hour tablet Take 25 mg by mouth daily. 03/23/2020 Active simvastatin (ZOCOR) 20 mg tablet Take 20 mg by mouth daily at bedtime. 03/23/2020 Active Active Problems No known active problems Social History Tobacco Use Types Packs/Day Years Used Date Smoking Tobacco: Never Sex and Gender Information Value Date Recorded Sex Assigned at Not on file Legal Sex Male 9:48 PM CDT Gender Identity Not on file Sexual Orientation Not on file Last Filed Vital Signs Vital Sign Reading Time Taken Comments Blood Pressure 132/86 05/23/2020 12:50 PM CDT Pulse 65 05/23/2020 12:50 PM CDT Temperature 36.9 C (98.4 F) 05/23/2020 8:54 AM CDT Respiratory Rate 20 05/23/2020 12:50 PM CDT Oxygen Saturation 98% 05/23/2020 12:50 PM CDT Inhaled Oxygen Concentration - - Weight 113.4 kg (250 lb) 05/23/2020 8:54 AM CDT Height 193 cm (6' 4 ) 05/23/2020 8:54 AM CDT Body Mass Index 30.43 05/23/2020 8:54 AM CDT Plan of Treatment Health Maintenance Due Date Last Done Comments DTAP/TDAP/TD VACCINES (1 - Tdap) 1996 HEPATITIS B VACCINES (1 of 3 - 19+ 3-dose series) 1996 COLORECTAL SCREENING 2022 Colorectal Cancer Screening 2022 FIT-DNA Q 3 years 2022 FIT/FOBT Q 1 year 2022 Flex Sig/CT Colonography Q 5 years 2022 INFLUENZA VACCINE (#1) 2024 09/03/2017 PNEUMOCOCCAL VACCINE 0-64 YEARS Aged Out No longer eligible based on patient's age to complete this topic Insurance [place] [address] BLUE PREFERRED Care Teams Field Manager Relationship Specialty Start Date End Date Burke Trent MD [address] [id number] PCP - General Internal Medicine 05/23/20
--- NOTE | 2024-12-23 17:29 | ED_ITS ---
HPI - Syncope General Chief Complaint: Syncope Stated Complaint: syncopal Time Seen by Provider: 12/23/24 14:38 History of Present Illness HPI narrative: Patient is a 49-year-old male who presents ER with dizziness. Reports he got out of his truck and started having spinning dizziness. He felt nauseous. He thought he might lose consciousness but did not. No chest pain or chest pressure. This has happened to him once before. No recent sinus congestion or sore throat or productive cough. Unsure what provokes is dizziness. Related Data Allergies Allergy/AdvReac Type Severity Reaction Status Date / Time lisinopril AdvReac Severe Swelling Verified 12/23/24 14:13 of Lip/Tongue/Throat Review of Systems 2 Review of Systems: All systems reviewed & are unremarkable except as noted in HPI and below Constitutional: Constitutional: Reports no additional constitutional complaints Cardiovascular: Cardiovascular: Reports no additional cardiovascular complaints Respiratory: Respiratory: Reports no additional respiratory complaints Neurologic: Reports system reviewed and no additional complaints, except as documented PMFSH Past Medical History Medical History (Updated 12/23/24 @ 17:36 by Lalo Walter MD) Hypertension Hyperlipidemia Exam 2 Narrative: GENERAL: Well-appearing, well-nourished, and in no acute distress. HEAD: Normocephalic, atraumatic. EYES: PERRL and EOMI. Left gaze nystagmus. ENT: Mucous membranes moist. TMs normal bilaterally. CHEST: Clear to auscultation. No respiratory distress. HEART: Regular rate and rhythm. Normal peripheral pulses. ABDOMEN: Soft, nontender, nondistended. EXTREMITIES: Normal range of motion. No edema. SKIN: Warm, dry, no rash. NEURO: Alert and oriented x3. Course Course Emergency Course: Symptoms resolved with IV fluid and meclizine. Suspect peripheral vertigo and recommend meclizine for home. Discharge. Vital Signs Vital signs: Vital Signs Pulse Rate 72 12/23/24 14:00 Respiratory Rate 22 H 12/23/24 14:00 Blood Pressure 169/94 H 12/23/24 14:00 Pulse Oximetry 100 12/23/24 14:00 Oxygen Delivery Room Air 12/23/24 14:00 Temperature 99 F 12/23/24 14:12 Pulse Rate 73 12/23/24 16:37 Respiratory Rate 12 12/23/24 16:37 Blood Pressure 141/85 H 12/23/24 16:37 Pulse Oximetry 96 12/23/24 16:37 Oxygen Delivery Room Air 12/23/24 14:00 MDM - Syncope Lab Data 12/23/24 14:23 12/23/24 14:23 Labs: Lab Results 12/23/24 12/23/24 Range/Units 14:11 14:23 WBC 5.0 (4.5-10.0) K/mm3 RBC 5.22 (4.6-6.20) M/mm3 Hgb 14.8 (14.0-18.0) g/dL Hct 42.7 (42.0-52.0) % MCV 81.8 (80-100) fl MCH 28.4 (26-34) pg MCHC 34.7 (32-36) g/dl RDW 13.9 (11.5-14.5) % Plt Count 176 (150-375) k/mm3 MPV 10.2 (7.4-10.4) fl Immature Gran % (Auto) 0.2 (0-0.5) % Neut % (Auto) 64.5 (45.5-73.1) % Lymph % (Auto) 21.0 (18.3-44.2) % Anderson % (Auto) 12.7 H (2.6-8.5) % Eos % (Auto) 1.2 (0-4.4) % Baso % (Auto) 0.4 (0.2-1.2) % Lymph # (Auto) 1.06 (0.9-3.2) K/mm3 Anderson # (Auto) 0.6 (0.1-0.6) K/mm3 Eos # (Auto) 0.1 (0-0.3) K/mm3 Baso # (Auto) 0.0 (0.0-0.1) K/mm3 Abs Immat Gran (auto) 0.01 (0.00-0.031) K/mm3 Absolute Neuts (auto) 3.3 (1.3-6.7) K/mm3 Absolute Nucleated RBC 0.000 (0.0-0.012) K/mm3 Nucleated RBC % 0.0 (0.0-0.2) % Sodium 137 (137-145) mmol/L Potassium 3.4 (3.4-5.0) mmol/L Chloride 104 (98-107) mmol/L Carbon Dioxide 19 L (22-30) mmol/L Anion Gap 14 H (4-12) mmol/L BUN 15 (9-20) mg/dL Creatinine 1.02 (0.7-1.3) mg/dL Estim Creat Clear Calc 109 ml/min Estimated GFR > 60 (59 - ) Glucose 91 (65-110) mg/dL POC Capillary Glucose 96 (65-105) mg/dl Calcium 9.2 (8.4-10.2) mg/dL Total Bilirubin 0.9 (0.2-1.3) mg/dL AST 23 (17-59) U/L ALT 29 (6-50) U/L Alkaline Phosphatase 86 (38-126) U/L Total Protein 8.0 (6.3-8.2) g/dL Albumin 4.3 (3.5-5.1) g/dL Imaging Data Radiologist's impression: ITS Impressions Chest X-Ray 12/23/24 14:35 IMPRESSION: 1. No acute cardiopulmonary disease. ECG Data EKG #1: ECG completion date: 12/23/24 ECG completion time: 14:09 EKG Interpretation: normal rate (68), sinus rhythm, non-specific ST changes, normal QRS, normal QT and NL axis Discharge Plan Discharge Clinical Impression: Vertigo Patient Disposition: Home, Self-Care Condition: Stable Instructions: Acute Nausea and Vomiting (ED) Additional Instructions: Return the ER if you have fever over 100.4? F, you cannot keep down food water, you lose consciousness, have additional concerns. Patient Language: Swedish Prescriptions: New meclizine 25 mg tablet 25 mg PO TID PRN (Reason: dizziness) Qty: 20 0RF Follow-up/Referrals: UNKNOWN,DOCTOR [Primary Care Provider] - 1 Week Stand Alone Forms: Work/School Release IP
[2024-12-23 17:54] VITALS: BP 114/87; PULSE 68; RESP 15; O2SAT 97
== END 2024-12-23 17:56 | disposition home or self-care (01) ==
PROVIDERS: Emergency Provider Emergency Medicine
DX: R42 Dizziness and giddiness (principal); I10 Essential (primary) hypertension; E78.5 Hyperlipidemia, unspecified
CPT/HCPCS: 36415; 71046; 80053; 82948; 85025; 93005; 96361; 96374; 99284; A9270; J2405; J7030